=== PATIENT | male | born 1950 | race Caucasian/White ===

== ENCOUNTER 2017-08-04 12:20 | Inpatient (IN) ==
[2017-08-04] MEDS ORDERED: *HR* Promethazine 25 MG/ML VIAL ONE (12:26)
[2017-08-04] MEDS ORDERED: *HR* Midazolam HCl 5 MG/5 ML VIAL IVP ONE (12:26)
[2017-08-04] MEDS ORDERED: *HR* FentaNYL (PF) 100 MCG/2 ML VIAL ONE (12:26)
[2017-08-04] MEDS ORDERED: *HR* Promethazine 25 MG/ML VIAL IVP ONE (12:37)
[2017-08-04] MEDS ORDERED: Simethicone 40 MG/0.6 ML MLS IR ONE (12:37)
[2017-08-04] MEDS ORDERED: *HR* FentaNYL (PF) 100 MCG/2 ML VIAL IVP PRN (12:37)
--- NOTE | 2017-08-04 12:41 | History & Physical Report ---
Date of Encounter: 08/04/17 Time of Encounter: 12:40 24 Hour HP Update - Instructions Instructions: If the History and Physical is less than 30 days old and was completed prior to A.M. admission and or procedure and has NOT been updated on calendar day of procedure please complete this update prior to performing procedure. - Update Patient reports changes in Medical Condition: No Changes in examination, assessment, or condition: No Changes in Medication: No Surgery Remains Indicated: Yes Consent for Planned Operative Procedure(s) Verified: Yes - Pre-Operative Checklist Prophylactic Antibiotic Ordered: No Home Medications Include Beta Americo: Yes Is VTE Prophylaxis Indicated?: NO
--- NOTE | 2017-08-04 12:41 | Pre-Sedation Evaluation ---
Pre-sedation evaluation - Pre-sedation checklist Date of procedure: 08/04/17 Procedure: flex sigmoidoscopy Recent Vitals: Last Vital Signs Temp 98.5 F 08/04/17 12:28 Pulse 84 08/04/17 12:28 Resp 20 08/04/17 12:28 BP 110/76 08/04/17 12:28 Pulse Ox 95 08/04/17 12:28 H&P (including ROS) documented in medical record: Yes Previous reaction to sedatives/anesthetics: No Dietary Status: NPO after Midnight Dentition: No loose teeth or bridges ASA Classification *see protocol: CLASS III-Severe systemic disease Plan of Care: Pt appropriate candidate for procedure/moderate/conscious sedation , Risks/benefits of procedure/sedation discussed w/ patient/family
[2017-08-04] MEDS ORDERED: 0.9 % Sodium Chloride 1,000 ML IVC SCH (12:45)
[2017-08-04] MEDS: *HR* Midazolam HCl 5 MG/5 ML VIAL IVP PRN ×2 (12:45→12:47)
[2017-08-04] MEDS ORDERED: Naloxone 0.4 MG/ML INJ IVP PRN (13:40)
[2017-08-04] MEDS ORDERED: Polyethylene Glycol 3350 255 GM POWDER PO ONE (13:42)
[2017-08-04] MEDS ORDERED: *HR* LORazepam 2 MG/ML VIAL IVP PRN (14:09)
[2017-08-04 14:12] LABS: Hematocrit 37.1 % (37.5-50.1); Hemoglobin 12.8 g/dL (12.9-16.9); Mean Corpuscular HGB Conc 34.5 g/dL (31.6-35.5); Mean Corpuscular Hemoglobin 28.7 pg (28.0-33.3); Mean Corpuscular Volume 83.2 fL (83.0-100.0); Mean Platelet Volume 9.2 fL (9.4-12.4); Platelet Count 177 K/mcL (140-400); Red Blood Count 4.46 M/mcL (4.19-5.50); Red Cell Distribution Width 15.3 % (11.5-14.5)
[2017-08-04 14:29] LABS: BUN/Creatinine Ratio 12 (6-26); Blood Urea Nitrogen 14 mg/dL (8-26); Calcium 9.2 mg/dL (8.6-10.8); Carbon Dioxide 26 mEq/L (19-29); Chloride 105 mEq/L (98-109); Glucose 226 mg/dL (70-99); Magnesium 1.7 mg/dL (1.6-2.6); Osmolality,Calculated 294 (280-300); Phosphorous 3.1 mg/dL (2.3-4.7); Potassium 4.3 mEq/L (3.5-4.5); Sodium 138 mEq/L (136-145); eGFR For African Americans > 60 (> 60); eGFR For Non-African Americans > 60 (> 60)
[2017-08-04] MEDS: 0.9 % Sodium Chloride 1,000 ML IVC SCH (15:30)
[2017-08-04] MEDS: *HR* Metoprolol 5 MG/5 ML VIAL IVP SCH (16:24)
[2017-08-04] MEDS: Acetaminophen 325 MG TABLET PO PRN (17:53)
--- NOTE | 2017-08-04 19:27 | Anesthesia Evaluation PreOp ---
Date of Encounter: 08/04/17 Time of Encounter: 19:25 - Past History Planned Operation: Robotic Low ant. Resection Cardiac History: Denies any Significant Hx (Col), HTN, Hyperlipidemia Pulmonary History: CIARAN Dx (CPAP (7)) INTERNAL MEDICINE NURSE History: Denies Any Significant HX Other Medical History: Other (Rectal CA) Anesthesia History: No Prior Anesthetic Complications, Past Anesthesia ( Colonoscopy, Cataracts) Alcohol Use: none Drug use: none Medications and Allergies Ascorbic Acid [Vitamin C] 500 mg PO DAILY #30 tablet 04/26/17 [Rx] Ferrous Sulfate [Iron] 325 mg PO DAILY #30 tablet 04/26/17 [Rx] Lisinopril-HCTZ 20-12.5 [Prinzide 20-12.5] 1 each PO DAILY 04/26/17 [History] Omeprazole [PriLOSEC] 20 mg PO BIDAC #30 cap 04/26/17 [Rx] Ondansetron HCl [Zofran] 4 mg PO Q4H PRN #30 tablet 04/26/17 [Rx] Prochlorperazine Maleate [Compazine] 10 mg PO Q6H PRN #30 tablet 04/26/17 [Rx] OxyCODONE/APAP 5/325 [Percocet 5/325 MG] 1 - 2 each PO Q6HR PRN #40 tablet 07/14 [Rx] ALPRAZolam [Xanax 0.5 MG Tablet] 0.5 mg PO BID PRN #40 tablet 07/27/17 [Rx] 3 Allergy/AdvReac Type Severity Reaction Status Date / Time No Known Allergies Allergy Verified 07/14/17 16:04 - Meds/Allergy Pre-op Review Medications Reviewed: Yes Allergies Reviewed: Yes Beta Blockers on Current Med List: No Anesthesia Results - Labs 08/04/17 14:04 08/04/17 14:04 - Imaging EKG: image reviewed (SINUS RHYTHM MODERATE VOLTAGE CRITERIA FOR LVH, CONSIDER NORMAL VARIANT INFERIOR MYOCARDIAL INFARCTION, PROBABLY OLD) Anesthesia Exam O2 Sat Height 1.85 m Height 1.85 m Height 1.85 m Height 1.85 m Weight 89.811 kg Weight 89.811 kg Weight 89.811 kg Weight 89.811 kg O2 Sat by Pulse Oximetry 96 O2 Sat by Pulse Oximetry 95 O2 Sat by Pulse Oximetry 97 O2 Sat by Pulse Oximetry 97 O2 Sat by Pulse Oximetry 95 O2 Sat by Pulse Oximetry 95 Vital Signs Temp Pulse Resp BP Pulse Ox 98.5 F 84 20 110/76 95 08/04/17 12:14 08/04/17 12:14 08/04/17 12:14 08/04/17 12:14 08/04/17 12:14 Vital Signs/O2 Sat, Most Current Temp Pulse Resp BP Pulse Ox 97.8 F 76 14 114/78 96 08/04/17 14:23 08/04/17 14:23 08/04/17 14:23 08/04/17 14:23 08/04/17 14:23 Height: 6'1'' Weight: 197# - HEENT Pupil (Motor): Pupils equal, EOMI Mallampati: II Teeth: Normal Oral Opening: Greater than 3 - INTERNAL MEDICINE NURSE LOC: Oriented INTERNAL MEDICINE NURSE Motor: Normal RUE, Normal LUE, Normal RLE, Normal LLE, Normal Face INTERNAL MEDICINE NURSE Sensory: Normal: RUE, LUE, RLE, LLE, Face - Cardiac Rhythm: Regular Murmur: None JVD: No Carotid Bruit: No - Pulmonary Breath Sounds: bilateral Clear Respiratory Effort: Symmetrical Anesthesia Assess/Plan ASA Score: 2 Modified Genoveva Scale for Level of Consciousness: Cooperative, oriented, and tranquil Anesthetic Plan: General Autologous Blood: Yes Monitoring Plan: Standard Monitors Recovery Plan: PACU
[2017-08-05] MEDS: *HR* Metoprolol 5 MG/5 ML VIAL IVP SCH ×4 (00:11→18:06)
[2017-08-05] MEDS: Acetaminophen 325 MG TABLET PO PRN (04:08)
[2017-08-05] MEDS: 0.9 % Sodium Chloride 1,000 ML IVC SCH ×2 (04:11→21:20)
[2017-08-05 04:56] LABS: BUN/Creatinine Ratio 11 (6-26); Blood Urea Nitrogen 13 mg/dL (8-26); Calcium 9.3 mg/dL (8.6-10.8); Carbon Dioxide 22 mEq/L (19-29); Chloride 107 mEq/L (98-109); Glucose 197 mg/dL (70-99); Magnesium 2.1 mg/dL (1.6-2.6); Osmolality,Calculated 290 (280-300); Phosphorous 3.5 mg/dL (2.3-4.7); Potassium 3.6 mEq/L (3.5-4.5); Sodium 137 mEq/L (136-145); eGFR For African Americans > 60 (> 60); eGFR For Non-African Americans > 60 (> 60)
[2017-08-05 05:37] LABS: Basophils % 0.3 %; Eosinophils # 0.2 K/mcL (0.0-0.6); Eosinophils % 2.8 %; Hematocrit 39.2 % (37.5-50.1); Hemoglobin 13.3 g/dL (12.9-16.9); Immature Granulocytes % 0.7 % (0-4); Lymphocytes # 0.6 K/mcL (0.6-4.6); Lymphocytes % 8.8 %; Mean Corpuscular HGB Conc 33.9 g/dL (31.6-35.5); Mean Corpuscular Volume 82.5 fL (83.0-100.0); Mean Platelet Volume 10.1 fL (9.4-12.4); Monocytes # 0.6 K/mcL (0.0-1.3); Monocytes % 8.3 %; Neutrophils # 5.5 K/mcL (1.6-8.9); Platelet Count 200 K/mcL (140-400); Red Blood Count 4.75 M/mcL (4.19-5.50); Red Cell Distribution Width 15.4 % (11.5-14.5); Segmented Neutrophils % 79.1 %
[2017-08-05] MEDS ORDERED: *HR* Rocuronium Bromide 50 MG/5 ML VIAL ONE ×2 (06:39→09:58)
[2017-08-05] MEDS ORDERED: *HR* Propofol 200 MG/20 ML VIAL IVP ONE (06:39)
[2017-08-05] MEDS ORDERED: *HR* Succinylcholine 200 MG/10 ML VIAL IVP ONE (06:39)
[2017-08-05] MEDS ORDERED: Lidocaine -MPF 4% 5 ML AMPUL ONE (06:39)
[2017-08-05] MEDS ORDERED: Dexamethasone 4 MG/ML VIAL ONE (06:39)
[2017-08-05] MEDS ORDERED: Lidocaine -MPF 2% 2 ML VIAL ONE ×2 (06:39→06:57)
[2017-08-05] MEDS ORDERED: Ondansetron 4 MG/2 ML VIAL ONE (06:39)
[2017-08-05] MEDS ORDERED: *HR* Midazolam HCl 2 MG/2 ML VIAL ONE (06:39)
[2017-08-05] MEDS ORDERED: *HR* FentaNYL (PF) 100 MCG/2 ML VIAL ONE (06:39)
[2017-08-05] MEDS ORDERED: *HR* Phenylephrine 10 MG/ML VIAL ONE (06:46)
[2017-08-05] MEDS: Pantoprazole 40 MG VIAL IVP SCH (08:45)
[2017-08-05] MEDS ORDERED: *HR* Enoxaparin 40 MG/0.4 ML SYRINGE SQ ONE (10:02)
[2017-08-05] MEDS ORDERED: cefOXitin 2,000 MG in D5% in Water (Mini-Bag+) 100 ML IVPB ONE (10:15)
[2017-08-05] MEDS ORDERED: *HR* HYDROmorphone 2 MG/ML SYRINGE ONE ×2 (10:33→12:43)
[2017-08-05] MEDS ORDERED: Neostigmine Methylsulfate 3 MG/3 ML SYRINGE ONE (12:15)
[2017-08-05] MEDS ORDERED: *HR* Promethazine 25 MG/ML VIAL IVP PRN (12:18)
[2017-08-05] MEDS ORDERED: Albuterol 2.5 MG/3 ML NEBULIZER IH PRN (12:18)
[2017-08-05] MEDS ORDERED: Ondansetron 4 MG/2 ML VIAL IVP PRN (12:18)
[2017-08-05] MEDS: *HR* HYDROmorphone (PF) 1 MG/ML SYRINGE IVP PRN ×3 (13:20→21:18)
[2017-08-05] MEDS ORDERED: *HR* HYDROmorphone (PF) 1 MG/ML SYRINGE ONE (13:24)
--- NOTE | 2017-08-05 13:43 | Anesthesia Evaluation Post Op ---
Date of Encounter: 08/05/17 Time of Encounter: 13:40 - Vital Signs Vital Signs: Last Vital Signs Temp 97.3 F L 08/05/17 13:29 Pulse 88 08/05/17 13:29 Resp 18 08/05/17 13:29 BP 144/83 08/05/17 13:29 Pulse Ox 94 08/05/17 13:29 - Lungs Lungs: Clear Ascult./Percussion - Airway Airway: Non-obstructed - Cardiovascular Regular Rate - Mental Status Mental Status: Asleep with brisk response to light stimulation - Pain Pain Scale: 7 Pain Scale used: Numeric (1 - 10) - Nausea Vomiting Nausea Vomiting: Not Present - Hydration Hydration: NPO, Has not voided - Discharge PostOp Status: Transfer Patient to floor Attestation: Patient meets floor transfer criteria. Easily awakens and communicative.
--- NOTE | 2017-08-05 15:12 | Operative Note ---
Date of procedure: 08/05/17 Pre-op diagnosis: Rectal Cancer Post-op diagnosis: same Procedure in Detail: After informed consent, patient taken operating room placed supine position. After adequate sedation anesthesia patient was placed in a lithotomy position. After proper timeout a 12 mm cannula site was placed right superior to the umbilicus. Pneumoperitoneum was greater. A 13 mm cannula was placed in right lower quadrant. 5 mm camera was placed in the right upper quadrant. An 8 mm cannula was placed in subxiphoid region followed by another 8 mm in the left lower quadrant. Patient was placed in a headdown position. The robot was docked over the patient's left hip. Small bowel swept out of the pelvis. Rectosigmoid colon was then grasped and retracted cephalad. The peritoneum was then scored level of the sacral promontory. The left ureter was identified and kept on harm's way. The inferior mesenteric artery was then taken with a vessel sealer. The lateral rectosigmoid stalks were taken down the vessel sealer. The dissection was carried out down to the pelvic floor. The pelvic floor musculature was easily visualized. Rectosigmoid colon was dissected free from the retro-pubic tubercle region and the seminal vesicles were kept out of harm's way. Once it was freed a 45 mm robotic Endo staplers fired across the rectum. Once it was retracted and area was demarcated on the rectosigmoid sigmoid colon for transection. Indocyanine green was infused and we had excellent perfusion. A counterincision was made in the suprapubic region. Dissection carried down the anterior rectus sheath. The rectus muscles were then divided in the midline with Shirlene clamp. Once they were split the rectum and mesorectum were delivered. Yuly bowel clamps are used to place across the colon proximal and distal and transected. Allis clamps are placed on the bowel and then a pursestring suture device placed on the colon. 3-0 Prolene suture was passed. A pursestring sutures and created and a 33 mm EEA anvil was placed. Suture was tied and secured. Colon was then placed back in the pelvis. The stapler was passed through the anal canal and to the rectal stump and then the spear was placed through the staple line. The anvil was then connected secured and fired. There were 2 excellent donuts. A leak test revealed no leak. The distal termial ileum was brought to the right lower quadrant and a loop ileostomy was created. It was sewn to the skin with 3-0 vicryl. At that point the procedure was terminated. All incisions are closed with 0 Vicryl suture and 4-0 Vicryl suture. Marcaine was inserted in the Pfannenstiel incision. He tolerated the procedure well.
[2017-08-06] MEDS: *HR* Metoprolol 5 MG/5 ML VIAL IVP SCH ×4 (00:02→17:07)
[2017-08-06] MEDS: *HR* OxyCODONE/APAP 5/325 TABLET PO PRN ×4 (00:02→20:10)
[2017-08-06] MEDS: *HR* HYDROmorphone (PF) 1 MG/ML SYRINGE IVP PRN ×6 (03:29→19:01)
[2017-08-06 04:12] LABS: Basophils % 0.1 %; Hematocrit 32.5 % (37.5-50.1); Immature Granulocytes % 0.7 % (0-4); Lymphocytes # 0.6 K/mcL (0.6-4.6); Mean Corpuscular HGB Conc 32.9 g/dL (31.6-35.5); Mean Corpuscular Hemoglobin 27.7 pg (28.0-33.3); Mean Corpuscular Volume 84.2 fL (83.0-100.0); Mean Platelet Volume 10.3 fL (9.4-12.4); Monocytes % 7.7 %; Neutrophils # 10.6 K/mcL (1.6-8.9); Platelet Count 261 K/mcL (140-400); Red Blood Count 3.86 M/mcL (4.19-5.50); Red Cell Distribution Width 15.6 % (11.5-14.5); Segmented Neutrophils % 86.5 %
[2017-08-06 04:16] LABS: Hemoglobin 10.7 g/dL (12.9-16.9)
[2017-08-06 04:31] LABS: Calcium 8.4 mg/dL (8.6-10.8); Magnesium 1.9 mg/dL (1.6-2.6); Potassium 4.6 mEq/L (3.5-4.5)
[2017-08-06] MEDS: Pantoprazole 40 MG VIAL IVP SCH (08:28)
[2017-08-06] MEDS: 0.9 % Sodium Chloride 1,000 ML IVC SCH (11:26)
[2017-08-06] MEDS: *HR* Heparin 5,000 UNIT/ML VIAL SQ SCH ×2 (11:27→17:07)
--- NOTE | 2017-08-06 12:11 | General Surgery Progress Note ---
<Efraín Hendricks - Last Filed: 08/06/17 17:12> Date of Encounter: 08/06/17 Time of Encounter: 10:15 - Assessment and Plan (1) Status post ileostomy Current Visit: Yes Status: Acute Patient is recovering well from his operation. Has some mild pain near his incision sites. Loop ileostomy and bag present in the RLQ. There is a small amount of blood is present in the bag; this is normal per Dr. Gao. -Pain control -Clear liquid diet. -Protonix 40 mg. -Zofran 4mg Q4hr PRN. -AM labs. -Pathology specimen is currently pending. (2) Anxiety Current Visit: No Status: Acute Patient is currently on Ativan 0.5 mg. (3) NIRANJAN (iron deficiency anemia) Current Visit: No Status: Acute Hemoglobin was 10.7 this morning. Qualifiers: Qualified Code(s): D50.9 - Iron deficiency anemia, unspecified (4) Rectal cancer Current Visit: No Status: Acute Subjective Patient reports: no new complaints, feels better, still having pain, pain is less Narrative: Patient was seen and examined at bedside this morning. Patient states that he has mild pain in his abdomen around the areas of his incision sites. He states that his pain is currently well controlled. He is currently on a clear liquid diet and is tolerating it well. He currently denies fever, chills, nausea, vomiting, or chest pain. Patient appears to be recovering well after his operation. He has no complaints at this time. Objective Vital Signs - Last 8 Hours Temp Pulse Resp BP Pulse Ox 08/06/17 11:36 97.4 F L 80 14 126/73 96 08/06/17 07:10 97.4 F L 75 16 117/75 96 08/06/17 04:19 97.9 F 93 14 114/75 96 Intake and Output 08/05/17 08/06/17 08/06/17 23:59 07:59 15:59 Intake Total 1000 / 1000 120 / 120 1000 / 1000 Output Total 75 / 75 550 / 550 200 / 200 Balance 925 / 925 -430 / -430 800 / 800 Intake: IV Fluids 1000 / 1000 1000 / 1000 0.9 % Sodium Chloride 1,000 ML 1000 / 1000 1000 / 1000 @ 75 mls/hr IVC .[id number] [facility] Rx #:[id number] Oral 0 / 0 120 / 120 Output: Urine 75 / 75 550 / 550 200 / 200 Other: Meal NPO NPO Weight 89.403 kg Blood Glucose* 346 307 Patient Weight 08/06/17 23:59 Weight 89.403 kg - General physical appearance well developed, well nourished, no distress - Neck Neck exam: trachea midline, no lymphadectomy - Respiratory normal expansion, normal respiratory effort, clear to auscultation - Cardiovascular Cardiovascular exam: Present: RRR, no murmurs/rubs/gallops. Absent: bradycardia , gallop - Abdomen Abdomen: Present: bowel sounds present, soft, tender Additional Comments: Ileostomy bag observed in the right lower quadrant. There is blood in his bag; per Dr. Gao, this is normal appearance. Several bandages are observed on the abdomen. No drainage, redness, or blood observed. - Incision Incision: Present: clean and dry, intact - Psychiatric oriented to time, oriented to person, oriented to place, speech is normal - Labs 08/06/17 03:00 08/06/17 03:00 Diabetes panel 08/06/17 Range/Units 03:00 Sodium 139 (136-145) mEq/L Potassium 4.6 H D (3.5-4.5) mEq/L Chloride 110 H (98-109) mEq/L Carbon Dioxide 18 L (19-29) mEq/L BUN 29 H D (8-26) mg/dL Creatinine 1.73 H D (0.72-1.25) mg/dL Glucose 361 H (70-99) mg/dL Calcium 8.4 L (8.6-10.8) mg/dL Calcium panel 08/06/17 Range/Units 03:00 Calcium 8.4 L (8.6-10.8) mg/dL Phosphorus 6.0 H D (2.3-4.7) mg/dL Pituitary panel 08/06/17 Range/Units 03:00 Sodium 139 (136-145) mEq/L Potassium 4.6 H D (3.5-4.5) mEq/L Chloride 110 H (98-109) mEq/L Carbon Dioxide 18 L (19-29) mEq/L BUN 29 H D (8-26) mg/dL Creatinine 1.73 H D (0.72-1.25) mg/dL Glucose 361 H (70-99) mg/dL Calcium 8.4 L (8.6-10.8) mg/dL Adrenal panel 08/06/17 Range/Units 03:00 Sodium 139 (136-145) mEq/L Potassium 4.6 H D (3.5-4.5) mEq/L Chloride 110 H (98-109) mEq/L Carbon Dioxide 18 L (19-29) mEq/L BUN 29 H D (8-26) mg/dL Creatinine 1.73 H D (0.72-1.25) mg/dL Glucose 361 H (70-99) mg/dL Calcium 8.4 L (8.6-10.8) mg/dL - VTE Documentation of Mechanical Device: Intermittent pneumatic compression device Consult Discharge Plan - Plan Referrals: Lavonne Arellano MD [Partnered Physician] - 08/18/17 1:55 pm Jessica Wang CNP [Primary Care Provider] - <Nick Gao - Last Filed: 08/07/17 10:14> Date of Encounter: 08/06/17 Objective Vital Signs - Last 8 Hours Temp Pulse Resp BP Pulse Ox 08/07/17 09:59 91 18 158/82 93 08/07/17 06:51 97.4 F L 83 18 156/73 92 08/07/17 04:02 97.4 F L 95 14 165/79 91 Intake and Output 08/06/17 08/07/17 08/07/17 23:59 07:59 15:59 Intake Total 120 / 120 1000 / 1000 Output Total 150 / 150 350 / 350 Balance -30 / -30 650 / 650 Intake: IV Fluids 1000 / 1000 0.9 % Sodium Chloride 1,000 ML 1000 / 1000 @ 75 mls/hr IVC .[id number] [facility] Rx #:[id number] Oral 120 / 120 0 / 0 Output: Urine 150 / 150 350 / 350 Other: Meal npo npo Weight 89.04 kg Blood Glucose* 320 353 Patient Weight 08/07/17 23:59 Weight 89.04 kg - Labs 08/07/17 08:02 08/07/17 08:02 Diabetes panel 08/07/17 Range/Units 08:02 Sodium 137 (136-145) mEq/L Potassium 4.9 H (3.5-4.5) mEq/L Chloride 107 (98-109) mEq/L Carbon Dioxide 19 (19-29) mEq/L BUN 35 H (8-26) mg/dL Creatinine 1.34 H (0.72-1.25) mg/dL Glucose 346 H (70-99) mg/dL Calcium 8.7 (8.6-10.8) mg/dL Calcium panel 08/07/17 Range/Units 08:02 Calcium 8.7 (8.6-10.8) mg/dL Pituitary panel 08/07/17 Range/Units 08:02 Sodium 137 (136-145) mEq/L Potassium 4.9 H (3.5-4.5) mEq/L Chloride 107 (98-109) mEq/L Carbon Dioxide 19 (19-29) mEq/L BUN 35 H (8-26) mg/dL Creatinine 1.34 H (0.72-1.25) mg/dL Glucose 346 H (70-99) mg/dL Calcium 8.7 (8.6-10.8) mg/dL Adrenal panel 08/07/17 Range/Units 08:02 Sodium 137 (136-145) mEq/L Potassium 4.9 H (3.5-4.5) mEq/L Chloride 107 (98-109) mEq/L Carbon Dioxide 19 (19-29) mEq/L BUN 35 H (8-26) mg/dL Creatinine 1.34 H (0.72-1.25) mg/dL Glucose 346 H (70-99) mg/dL Calcium 8.7 (8.6-10.8) mg/dL - Attending Attestation I examined this patient and my medical decision-making was reviewed with the Resident Physician. I agree with the documented findings, disposition and treatment plan as described except to the extent set forth below. The patient is seen and evaluated on morning rounds. The ileostomy has serosanguineous fluid. This amount of bleeding is not of any concern clinically. His abdomen is slightly distended. There is no flatus in the ileostomy bag. He is currently on clear liquids. We will continue supportive care. Nick Gao MD FACS
[2017-08-07] MEDS: 0.9 % Sodium Chloride 1,000 ML IVC SCH ×2 (00:33→12:59)
[2017-08-07] MEDS: *HR* Metoprolol 5 MG/5 ML VIAL IVP SCH ×6 (00:34→23:00)
[2017-08-07] MEDS: *HR* OxyCODONE/APAP 5/325 TABLET PO PRN ×3 (02:08→23:00)
[2017-08-07] MEDS: Ondansetron 4 MG/2 ML VIAL IVP PRN (03:55)
[2017-08-07] MEDS: *HR* Heparin 5,000 UNIT/ML VIAL SQ SCH ×2 (06:44→08:31)
[2017-08-07 08:11] LABS: Hematocrit 28.3 % (37.5-50.1); Hemoglobin 9.7 g/dL (12.9-16.9); Immature Platelets 2.2 % (1.1-6.1); Mean Corpuscular HGB Conc 34.3 g/dL (31.6-35.5); Mean Corpuscular Hemoglobin 28.8 pg (28.0-33.3); Mean Platelet Volume 9.2 fL (9.4-12.4); Red Blood Count 3.37 M/mcL (4.19-5.50); Red Cell Distribution Width 15.5 % (11.5-14.5)
[2017-08-07 08:42] LABS: BUN/Creatinine Ratio 26 (6-26); Blood Urea Nitrogen 35 mg/dL (8-26); Calcium 8.7 mg/dL (8.6-10.8); Carbon Dioxide 19 mEq/L (19-29); Chloride 107 mEq/L (98-109); Glucose 346 mg/dL (70-99); Osmolality,Calculated 306 (280-300); Potassium 4.9 mEq/L (3.5-4.5); Sodium 137 mEq/L (136-145); eGFR For African Americans > 60 (> 60); eGFR For Non-African Americans 53 (> 60)
[2017-08-07] MEDS ORDERED: *HR* Promethazine 25 MG/ML VIAL IVP ONE (08:49)
[2017-08-07] MEDS ORDERED: *HR* Promethazine 25 MG/ML VIAL ONE (08:51)
[2017-08-07] MEDS: Pantoprazole 40 MG VIAL IVP SCH (08:55)
[2017-08-07] MEDS: *HR* HYDROmorphone (PF) 1 MG/ML SYRINGE IVP PRN ×2 (09:06→12:57)
--- NOTE | 2017-08-07 10:58 | General Surgery Progress Note ---
<Efraín Hendricks - Last Filed: 08/07/17 11:04> Date of Encounter: 08/07/17 Time of Encounter: 10:15 - Assessment and Plan (1) Status post ileostomy Current Visit: Yes Status: Acute Patient is recovering well from his operation. Has some mild pain near his incision sites. Loop ileostomy and bag present in the RLQ. There is a small amount of blood is present in the bag; this is normal per Dr. Gao. -Pain control -Clear liquid diet. -Protonix 40 mg. -Zofran 4mg Q4hr PRN. -AM labs. -Pathology specimen is currently pending. (2) Nausea Current Visit: Yes Status: Acute Patient reported having nausea without vomiting this morning. Plan: -Patient is now NPO -Reglan 20 mg IV q8hr for 4 doses, then discontinue. (3) Anxiety Current Visit: No Status: Acute Patient was previously on Ativan; this has been discontinued. Patient is now on Xanax. (4) NIRANJAN (iron deficiency anemia) Current Visit: No Status: Acute Hemoglobin was 9.7 this morning. (5) Rectal cancer Current Visit: No Status: Acute Subjective Patient reports: still having pain, pain is less Narrative: Patient was seen and examined at bedside this morning. He reports feeling nausea this morning, but denies any episodes of vomiting. Denies having any new abdominal pain. He is still somewhat sore, particularly at his incision sites. Currently denies feeling any anxiety. Denies fever or chills. Objective Vital Signs - Last 8 Hours Temp Pulse Resp BP Pulse Ox 08/07/17 09:59 91 18 158/82 93 08/07/17 06:51 97.4 F L 83 18 156/73 92 08/07/17 04:02 97.4 F L 95 14 165/79 91 Intake and Output 08/06/17 08/07/17 08/07/17 23:59 07:59 15:59 Intake Total 120 / 120 1000 / 1000 Output Total 150 / 150 350 / 350 Balance -30 / -30 650 / 650 Intake: IV Fluids 1000 / 1000 0.9 % Sodium Chloride 1,000 ML 1000 / 1000 @ 75 mls/hr IVC .[id number] [facility] Rx #:[id number] Oral 120 / 120 0 / 0 Output: Urine 150 / 150 350 / 350 Other: Meal npo npo Weight 89.04 kg Blood Glucose* 320 353 Patient Weight 08/07/17 23:59 Weight 89.04 kg - Labs 08/07/17 08:02 08/07/17 08:02 Diabetes panel 08/07/17 Range/Units 08:02 Sodium 137 (136-145) mEq/L Potassium 4.9 H (3.5-4.5) mEq/L Chloride 107 (98-109) mEq/L Carbon Dioxide 19 (19-29) mEq/L BUN 35 H (8-26) mg/dL Creatinine 1.34 H (0.72-1.25) mg/dL Glucose 346 H (70-99) mg/dL Calcium 8.7 (8.6-10.8) mg/dL Calcium panel 08/07/17 Range/Units 08:02 Calcium 8.7 (8.6-10.8) mg/dL Pituitary panel 08/07/17 Range/Units 08:02 Sodium 137 (136-145) mEq/L Potassium 4.9 H (3.5-4.5) mEq/L Chloride 107 (98-109) mEq/L Carbon Dioxide 19 (19-29) mEq/L BUN 35 H (8-26) mg/dL Creatinine 1.34 H (0.72-1.25) mg/dL Glucose 346 H (70-99) mg/dL Calcium 8.7 (8.6-10.8) mg/dL Adrenal panel 08/07/17 Range/Units 08:02 Sodium 137 (136-145) mEq/L Potassium 4.9 H (3.5-4.5) mEq/L Chloride 107 (98-109) mEq/L Carbon Dioxide 19 (19-29) mEq/L BUN 35 H (8-26) mg/dL Creatinine 1.34 H (0.72-1.25) mg/dL Glucose 346 H (70-99) mg/dL Calcium 8.7 (8.6-10.8) mg/dL - VTE Documentation of Mechanical Device: Intermittent pneumatic compression device Consult Discharge Plan - Plan Referrals: Lavonne Arellano MD [Partnered Physician] - 08/18/17 1:55 pm Jessica Wang CNP [Primary Care Provider] - <Nick Gao - Last Filed: 08/07/17 14:30> Date of Encounter: 08/07/17 Time of Encounter: 10:15 Objective Vital Signs - Last 8 Hours Temp Pulse Resp BP Pulse Ox 08/07/17 11:12 97.6 F 94 18 148/72 90 08/07/17 09:59 91 18 158/82 93 08/07/17 06:51 97.4 F L 83 18 156/73 92 Intake and Output 08/06/17 08/07/17 08/07/17 23:59 07:59 15:59 Intake Total 120 / 120 1000 / 1000 1000 / 1000 Output Total 150 / 150 350 / 350 800 / 800 Balance -30 / -30 650 / 650 200 / 200 Intake: IV Fluids 1000 / 1000 1000 / 1000 0.9 % Sodium Chloride 1,000 ML 1000 / 1000 1000 / 1000 @ 75 mls/hr IVC .[id number] [facility] Rx #:[id number] Oral 120 / 120 0 / 0 0 / 0 Output: Urine 150 / 150 350 / 350 800 / 800 Other: Meal npo npo Weight 89.04 kg Blood Glucose* 320 353 312 Patient Weight 08/07/17 23:59 Weight 89.04 kg - Labs 08/07/17 08:02 08/07/17 08:02 Diabetes panel 08/07/17 08/07/17 Range/Units 08:02 08:02 Sodium 137 (136-145) mEq/L Potassium 4.9 H (3.5-4.5) mEq/L Chloride 107 (98-109) mEq/L Carbon Dioxide 19 (19-29) mEq/L BUN 35 H (8-26) mg/dL Creatinine 1.34 H (0.72-1.25) mg/dL Glucose 346 H (70-99) mg/dL Hemoglobin A1c 8.8 H ( - 5.6) % Calcium 8.7 (8.6-10.8) mg/dL Calcium panel 08/07/17 Range/Units 08:02 Calcium 8.7 (8.6-10.8) mg/dL Pituitary panel 08/07/17 Range/Units 08:02 Sodium 137 (136-145) mEq/L Potassium 4.9 H (3.5-4.5) mEq/L Chloride 107 (98-109) mEq/L Carbon Dioxide 19 (19-29) mEq/L BUN 35 H (8-26) mg/dL Creatinine 1.34 H (0.72-1.25) mg/dL Glucose 346 H (70-99) mg/dL Calcium 8.7 (8.6-10.8) mg/dL Adrenal panel 08/07/17 Range/Units 08:02 Sodium 137 (136-145) mEq/L Potassium 4.9 H (3.5-4.5) mEq/L Chloride 107 (98-109) mEq/L Carbon Dioxide 19 (19-29) mEq/L BUN 35 H (8-26) mg/dL Creatinine 1.34 H (0.72-1.25) mg/dL Glucose 346 H (70-99) mg/dL Calcium 8.7 (8.6-10.8) mg/dL - Attending Attestation I examined this patient and my medical decision-making was reviewed with the Resident Physician. I agree with the documented findings, disposition and treatment plan as described except to the extent set forth below. The patient is seen and evaluated on morning rounds. He has no itching and abdominal distention. He has had one episode of vomiting. He continues to have a small amount of serosanguineous drainage in his ileostomy bag. There is no flatus she had an ileostomy bag we will plan on making him nothing by mouth and giving him Reglan in an attempt to avoid nasogastric tube drainage. We will continue IV hydration. Nick Gao MD FACS
[2017-08-07] MEDS ORDERED: *HR* Dextrose 50 % in Water (Syg) 50 ML SYRINGE IVP PRN (12:22)
[2017-08-07] MEDS ORDERED: D5% in Water 1,000 ML IVC PRN (12:22)
[2017-08-07] MEDS ORDERED: Dextrose Gel 15 GM PO PRN ×2 (12:22)
[2017-08-07 12:54] LABS: Hemoglobin A1C 8.8 %
[2017-08-07] MEDS: Metoclopramide 20 MG in 0.9 % Sodium Chloride 50 ML IVPB SCH ×2 (14:34→18:22)
[2017-08-07 17:51] LABS: Hemoglobin 9.2 g/dL (12.9-16.9); Mean Corpuscular HGB Conc 34.1 g/dL (31.6-35.5); Mean Corpuscular Hemoglobin 28.6 pg (28.0-33.3); Mean Corpuscular Volume 83.9 fL (83.0-100.0); Mean Platelet Volume 9.7 fL (9.4-12.4); Platelet Count 239 K/mcL (140-400); Red Blood Count 3.22 M/mcL (4.19-5.50); Red Cell Distribution Width 15.6 % (11.5-14.5)
[2017-08-07 18:01] LABS: BUN/Creatinine Ratio 26 (6-26); Blood Urea Nitrogen 34 mg/dL (8-26); Calcium 8.4 mg/dL (8.6-10.8); Carbon Dioxide 21 mEq/L (19-29); Chloride 108 mEq/L (98-109); Glucose 306 mg/dL (70-99); Osmolality,Calculated 307 (280-300); Sodium 139 mEq/L (136-145); eGFR For African Americans > 60 (> 60); eGFR For Non-African Americans 54 (> 60)
[2017-08-07] MEDS: Insulin LISPRO 300 UNITS/3 ML VIAL SQ SCH ×2 (18:34→23:00)
[2017-08-08] MEDS: Ondansetron 4 MG/2 ML VIAL IVP PRN ×2 (02:36→21:26)
[2017-08-08] MEDS: *HR* HYDROmorphone (PF) 1 MG/ML SYRINGE IVP PRN ×4 (02:37→21:27)
[2017-08-08] MEDS: ALPRAZolam 0.5 MG TABLET PO PRN ×3 (02:46→21:53)
[2017-08-08] MEDS: 0.9 % Sodium Chloride 1,000 ML IVC SCH ×2 (02:46→17:37)
[2017-08-08] MEDS: Metoclopramide 20 MG in 0.9 % Sodium Chloride 50 ML IVPB SCH ×2 (02:50→09:52)
[2017-08-08] MEDS: *HR* Metoprolol 5 MG/5 ML VIAL IVP SCH ×3 (07:50→17:42)
[2017-08-08] MEDS: *HR* Heparin 5,000 UNIT/ML VIAL SQ SCH ×2 (07:50→17:48)
[2017-08-08] MEDS: Pantoprazole 40 MG VIAL IVP SCH (09:50)
[2017-08-08] MEDS: *HR* OxyCODONE/APAP 5/325 TABLET PO PRN (11:43)
[2017-08-08] MEDS: Insulin LISPRO 300 UNITS/3 ML VIAL SQ SCH ×3 (11:48→21:26)
--- NOTE | 2017-08-08 11:48 | General Surgery Progress Note ---
Date of Encounter: 08/08/17 Time of Encounter: 11:30 - Assessment and Plan (1) Rectal cancer Current Visit: No Status: Acute POD #3 from a LAR with diverting ileostomy with Dr. Negrete Advance to clear liquid diet with diabetic modifications Protein supplements TID with meals IV fluids- 75ml/hour Supportive care and pain control Increase activity as tolerated- ambulate hallways TID IS every 1 hour while awake Labs now and repeat in the am Wound care consult for ileostomy teaching (2) Hyperglycemia Current Visit: Yes Status: Acute Clear liquids with diabetic modifications Change SSI to ACHS and increase to medium scale coverage Will contnue to monitor and adjust as necessary (3) Acute kidney injury Current Visit: Yes Status: Acute Cr- 1.73>1.31 Continue IV fluids Avoid nephrotoxic medications Repeat labs now and in the am (4) DVT prophylaxis Current Visit: Yes Status: Acute Heparin 5,000 units SQ twice daily for DVT prophylaxis Ambulate hallway TID with assistance Subjective Patient reports: no new complaints, feels better, still having pain, pain is less, voiding w/o difficulty, flatus, bowel movement (via ileostomy), afebrile Objective Vital Signs - Last 8 Hours Temp Pulse Resp BP Pulse Ox 08/08/17 11:39 132/95 08/08/17 10:12 97.9 F 89 16 138/70 92 08/08/17 07:13 97.3 F L 87 16 160/74 93 08/08/17 05:18 97.7 F 96 14 123/70 93 Intake and Output 08/07/17 08/08/17 08/08/17 23:59 07:59 15:59 Intake Total 0 / 0 1000 / 1000 566 / 566 Output Total 1000 / 1000 0 / 0 700 / 700 Balance -1000 / -1000 1000 / 1000 -134 / -134 Intake: IV Fluids 1000 / 1000 566 / 566 0.9 % Sodium Chloride 1,000 ML 1000 / 1000 512 / 512 @ 75 mls/hr IVC .[id number] [facility] Rx #:[id number] Reglan 20 MG In 0.9 % Sodium 54 / 54 Chloride 50 ML @ 108 mls/hr IVPB Q8H [facility] Rx#:[id number] Oral 0 / 0 0 / 0 0 / 0 Output: Urine 700 / 700 0 / 0 700 / 700 Stool 300 / 300 Other: Meal NPo Percent of Meal Consumed 0% Stool Consistency liquid Stool Color Dark Red Blood Weight 88.859 kg Blood Glucose* 286 237 Patient Weight 08/08/17 23:59 Weight 88.859 kg - General physical appearance well developed, well nourished, no distress - Eyes PERRL, normal ocular movement - ENT dry mucosa, atraumatic, normocephalic - Neck Neck exam: trachea midline - Respiratory normal respiratory effort, clear to auscultation - Cardiovascular Cardiovascular exam: Present: RRR - Abdomen Abdomen: Present: bowel sounds present, soft, tender (expected post-operative tenderness) - Incision Incision: Present: clean and dry, intact - Neurologic CN 2-12 grossly intact - Psychiatric oriented to time, oriented to person, oriented to place, speech is normal, memory intact - Labs 08/07/17 16:57 08/07/17 16:57 Diabetes panel 08/07/17 08/07/17 Range/Units 08:02 16:57 Sodium 139 (136-145) mEq/L Potassium 5.0 H (3.5-4.5) mEq/L Chloride 108 (98-109) mEq/L Carbon Dioxide 21 (19-29) mEq/L BUN 34 H (8-26) mg/dL Creatinine 1.31 H (0.72-1.25) mg/dL Glucose 306 H (70-99) mg/dL Hemoglobin A1c 8.8 H ( - 5.6) % Calcium 8.4 L (8.6-10.8) mg/dL Calcium panel 08/07/17 Range/Units 16:57 Calcium 8.4 L (8.6-10.8) mg/dL Pituitary panel 08/07/17 Range/Units 16:57 Sodium 139 (136-145) mEq/L Potassium 5.0 H (3.5-4.5) mEq/L Chloride 108 (98-109) mEq/L Carbon Dioxide 21 (19-29) mEq/L BUN 34 H (8-26) mg/dL Creatinine 1.31 H (0.72-1.25) mg/dL Glucose 306 H (70-99) mg/dL Calcium 8.4 L (8.6-10.8) mg/dL Adrenal panel 08/07/17 Range/Units 16:57 Sodium 139 (136-145) mEq/L Potassium 5.0 H (3.5-4.5) mEq/L Chloride 108 (98-109) mEq/L Carbon Dioxide 21 (19-29) mEq/L BUN 34 H (8-26) mg/dL Creatinine 1.31 H (0.72-1.25) mg/dL Glucose 306 H (70-99) mg/dL Calcium 8.4 L (8.6-10.8) mg/dL - VTE Documentation of Mechanical Device: Intermittent pneumatic compression device Consult Discharge Plan - Plan Referrals: Lavonne Arellano MD [Partnered Physician] - 08/18/17 1:55 pm Jessica Wang CNP [Primary Care Provider] - - Attending Attestation For this encounter, I have reviewed the CLINICAL THERAPIST or PA documentation, treatment plan, and medical decision making; and I have had face to face time with this patient.
[2017-08-08 12:19] LABS: Basophils % 0.1 %; Eosinophils % 0.3 %; Hematocrit 25.3 % (37.5-50.1); Hemoglobin 8.5 g/dL (12.9-16.9); Immature Granulocytes % 0.9 % (0-4); Lymphocytes # 0.6 K/mcL (0.6-4.6); Lymphocytes % 5.8 %; Mean Corpuscular HGB Conc 33.6 g/dL (31.6-35.5); Mean Corpuscular Hemoglobin 28.6 pg (28.0-33.3); Mean Corpuscular Volume 85.2 fL (83.0-100.0); Mean Platelet Volume 8.9 fL (9.4-12.4); Monocytes # 0.9 K/mcL (0.0-1.3); Monocytes % 8.6 %; Neutrophils # 8.4 K/mcL (1.6-8.9); Platelet Count 225 K/mcL (140-400); Red Blood Count 2.97 M/mcL (4.19-5.50); Red Cell Distribution Width 15.7 % (11.5-14.5); Segmented Neutrophils % 84.3 %
[2017-08-08 12:35] LABS: BUN/Creatinine Ratio 29 (6-26); Blood Urea Nitrogen 30 mg/dL (8-26); Calcium 8.1 mg/dL (8.6-10.8); Carbon Dioxide 23 mEq/L (19-29); Chloride 110 mEq/L (98-109); Glucose 226 mg/dL (70-99); Osmolality,Calculated 303 (280-300); Potassium 4.4 mEq/L (3.5-4.5); Sodium 140 mEq/L (136-145); eGFR For African Americans > 60 (> 60); eGFR For Non-African Americans > 60 (> 60)
[2017-08-09] MEDS: *HR* Metoprolol 5 MG/5 ML VIAL IVP SCH ×2 (00:35→06:34)
[2017-08-09] MEDS: *HR* HYDROmorphone (PF) 1 MG/ML SYRINGE IVP PRN ×3 (04:42→16:12)
[2017-08-09] MEDS: ALPRAZolam 0.5 MG TABLET PO PRN ×3 (04:42→20:28)
[2017-08-09 06:29] LABS: Basophils % 0.2 %; Eosinophils # 0.2 K/mcL (0.0-0.6); Eosinophils % 2.5 %; Hematocrit 25.5 % (37.5-50.1); Hemoglobin 8.3 g/dL (12.9-16.9); Immature Granulocytes % 1.5 % (0-4); Lymphocytes # 0.6 K/mcL (0.6-4.6); Lymphocytes % 7.4 %; Mean Corpuscular HGB Conc 32.5 g/dL (31.6-35.5); Mean Corpuscular Hemoglobin 27.9 pg (28.0-33.3); Mean Corpuscular Volume 85.9 fL (83.0-100.0); Mean Platelet Volume 9.6 fL (9.4-12.4); Monocytes # 0.8 K/mcL (0.0-1.3); Monocytes % 9.1 %; Neutrophils # 6.8 K/mcL (1.6-8.9); Nucleated Red Blood Cells 0.6 /100 WBC (0); Platelet Count 235 K/mcL (140-400); Red Blood Count 2.97 M/mcL (4.19-5.50); Red Cell Distribution Width 15.8 % (11.5-14.5); Segmented Neutrophils % 79.3 %
[2017-08-09] MEDS: *HR* Heparin 5,000 UNIT/ML VIAL SQ SCH ×2 (06:34→18:43)
[2017-08-09 06:41] LABS: BUN/Creatinine Ratio 29 (6-26); Blood Urea Nitrogen 25 mg/dL (8-26); Calcium 8.1 mg/dL (8.6-10.8); Carbon Dioxide 22 mEq/L (19-29); Chloride 110 mEq/L (98-109); Glucose 164 mg/dL (70-99); Osmolality,Calculated 298 (280-300); Potassium 3.9 mEq/L (3.5-4.5); Sodium 140 mEq/L (136-145); eGFR For African Americans > 60 (> 60); eGFR For Non-African Americans > 60 (> 60)
[2017-08-09] MEDS: Pantoprazole 40 MG VIAL IVP SCH (08:13)
[2017-08-09] MEDS: Insulin LISPRO 300 UNITS/3 ML VIAL SQ SCH ×3 (08:14→16:17)
[2017-08-09] MEDS: 0.9 % Sodium Chloride 1,000 ML IVC SCH ×2 (08:16→20:32)
--- NOTE | 2017-08-09 10:10 | General Surgery Progress Note ---
Date of Encounter: 08/09/17 Time of Encounter: 09:15 - Assessment and Plan (1) Rectal cancer Current Visit: No Status: Acute POD #4 from a LAR with diverting ileostomy with Dr. Negrete Pathology pending Advance to full liquid diet with diabetic modifications Protein supplements TID with meals IV fluids- 60ml/hour Supportive care and pain control Increase activity as tolerated- ambulate hallways TID IS every 1 hour while awake Wound care consult for ileostomy teaching May shower today (2) Hyperglycemia Current Visit: Yes Status: Acute full liquids with diabetic modifications Continue SSI to ACHS and increase to high scale coverage Will contnue to monitor and adjust as necessary (3) Acute kidney injury Current Visit: Yes Status: Resolved Cr- 1.73>1.31>1.02>0.86 Continue IV fluids at 60ml/hour Avoid nephrotoxic medications (4) DVT prophylaxis Current Visit: Yes Status: Acute Heparin 5,000 units SQ twice daily for DVT prophylaxis Ambulate hallway TID with assistance Subjective Patient reports: no new complaints, feels better, still having pain, pain is less, tolerating liquids well, flatus, bowel movement (via ileostomy), afebrile Objective Vital Signs - Last 8 Hours Temp Pulse Resp BP Pulse Ox 08/09/17 07:14 97.6 F 68 18 117/62 92 Intake and Output 08/08/17 08/09/17 08/09/17 23:59 07:59 15:59 Intake Total 862 / 862 686 / 686 Output Total 700 / 700 150 / 150 Balance 162 / 162 536 / 536 Intake: IV Fluids 802 / 802 686 / 686 0.9 % Sodium Chloride 1,000 ML 802 / 802 686 / 686 @ 75 mls/hr IVC .[id number] DOM Rx #:[id number] Oral 60 / 60 0 / 0 Output: Urine 500 / 500 150 / 150 Stool 200 / 200 Other: Meal Dinner Stool Consistency liquid Stool Color Green Blood Glucose* 223 175 - General physical appearance well developed, well nourished, no distress - Eyes normal ocular movement - ENT dry mucosa, atraumatic, normocephalic - Neck Neck exam: trachea midline - Respiratory normal respiratory effort, clear to auscultation - Cardiovascular Cardiovascular exam: Present: RRR - Abdomen Abdomen: Present: bowel sounds present, soft, tender (expected post-operative tenderness), wound (Ileostomy is pink and moist with positive flatus and liquid green stool) - Incision Incision: Present: clean and dry, intact - Neurologic CN 2-12 grossly intact - Psychiatric oriented to time, oriented to person, oriented to place, speech is normal, memory intact - Labs 08/09/17 05:09 08/09/17 05:09 Diabetes panel 08/08/17 08/09/17 Range/Units 12:10 05:09 Sodium 140 140 (136-145) mEq/L Potassium 4.4 3.9 (3.5-4.5) mEq/L Chloride 110 H 110 H (98-109) mEq/L Carbon Dioxide 23 22 (19-29) mEq/L BUN 30 H 25 (8-26) mg/dL Creatinine 1.02 0.86 (0.72-1.25) mg/dL Glucose 226 H 164 H (70-99) mg/dL Calcium 8.1 L 8.1 L (8.6-10.8) mg/dL Calcium panel 08/08/17 08/09/17 Range/Units 12:10 05:09 Calcium 8.1 L 8.1 L (8.6-10.8) mg/dL Pituitary panel 08/08/17 08/09/17 Range/Units 12:10 05:09 Sodium 140 140 (136-145) mEq/L Potassium 4.4 3.9 (3.5-4.5) mEq/L Chloride 110 H 110 H (98-109) mEq/L Carbon Dioxide 23 22 (19-29) mEq/L BUN 30 H 25 (8-26) mg/dL Creatinine 1.02 0.86 (0.72-1.25) mg/dL Glucose 226 H 164 H (70-99) mg/dL Calcium 8.1 L 8.1 L (8.6-10.8) mg/dL Adrenal panel 08/08/17 08/09/17 Range/Units 12:10 05:09 Sodium 140 140 (136-145) mEq/L Potassium 4.4 3.9 (3.5-4.5) mEq/L Chloride 110 H 110 H (98-109) mEq/L Carbon Dioxide 23 22 (19-29) mEq/L BUN 30 H 25 (8-26) mg/dL Creatinine 1.02 0.86 (0.72-1.25) mg/dL Glucose 226 H 164 H (70-99) mg/dL Calcium 8.1 L 8.1 L (8.6-10.8) mg/dL - VTE Documentation of Mechanical Device: Intermittent pneumatic compression device Consult Discharge Plan - Plan Referrals: Lavonne Arellano MD [Partnered Physician] - 08/18/17 1:55 pm Jessica Wang CNP [Primary Care Provider] - - Attending Attestation For this encounter, I have reviewed the DIRECTOR TELECOMMUNICATIONS or PA documentation, treatment plan, and medical decision making; and I have had face to face time with this patient.
[2017-08-09] MEDS: Lisinopril-HCTZ 20-12.5mg TABLET PO SCH (11:54)
[2017-08-09] MEDS: *HR* OxyCODONE/APAP 5/325 TABLET PO PRN ×2 (14:09→20:28)
[2017-08-09] MEDS: Ondansetron 4 MG/2 ML VIAL IVP PRN (16:12)
[2017-08-10] MEDS: Insulin LISPRO 300 UNITS/3 ML VIAL SQ SCH ×3 (00:35→13:13)
[2017-08-10] MEDS: *HR* OxyCODONE/APAP 5/325 TABLET PO PRN ×2 (00:41→10:21)
[2017-08-10] MEDS: *HR* HYDROmorphone (PF) 1 MG/ML SYRINGE IVP PRN (04:02)
[2017-08-10] MEDS: *HR* Heparin 5,000 UNIT/ML VIAL SQ SCH (05:49)
[2017-08-10] MEDS: 0.9 % Sodium Chloride 1,000 ML IVC SCH (07:33)
[2017-08-10 08:47] VITALS: BP 125/66
[2017-08-10] MEDS: Lisinopril-HCTZ 20-12.5mg TABLET PO SCH (10:21)
[2017-08-10] MEDS ORDERED: *HR* OxyCODONE/APAP 7.5/325 TABLET PO PRN (10:33)
[2017-08-10] MEDS ORDERED: Acetaminophen 325 MG TABLET PO PRN (10:35)
--- NOTE | 2017-08-10 10:49 | Discharge Summary ---
Date of Encounter: 08/10/17 Time of Encounter: 10:30 - Discharge Diagnosis (1) Rectal cancer Priority: Primary Status: Acute (2) Hyperglycemia Priority: Secondary Status: Acute (3) Acute kidney injury Priority: Secondary Status: Resolved - Discharge Medications Prescriptions: OxyCODONE/APAP 7.5/325 [Percocet 7.5/325 MG] 1 each PO Q4HR PRN #30 tablet PRN Reason: Moderate Pain metFORMIN [Glucophage] 1,000 mg PO BIDWM #120 tablet Home Medications: Ascorbic Acid [Vitamin C] 500 mg PO DAILY #30 tablet 04/26/17 [Rx] Ferrous Sulfate [Iron] 325 mg PO DAILY #30 tablet 04/26/17 [Rx] Lisinopril-HCTZ 20-12.5 [Prinzide 20-12.5] 1 each PO DAILY 04/26/17 [History] Omeprazole [PriLOSEC] 20 mg PO BIDAC #30 cap 04/26/17 [Rx] Ondansetron HCl [Zofran] 4 mg PO Q4H PRN #30 tablet 04/26/17 [Rx] Prochlorperazine Maleate [Compazine] 10 mg PO Q6H PRN #30 tablet 04/26/17 [Rx] ALPRAZolam [Xanax 0.5 MG Tablet] 0.5 mg PO BID PRN #40 tablet 07/27/17 [Rx] OxyCODONE/APAP 7.5/325 [Percocet 7.5/325 MG] 1 each PO Q4HR PRN #30 tablet 08/10 [Rx] metFORMIN [Glucophage] 1,000 mg PO BIDWM #120 tablet 08/10/17 [Rx] Allergies/Adverse Reactions: 3 Allergy/AdvReac Type Severity Reaction Status Date / Time No Known Allergies Allergy Verified 07/14/17 16:04 General Surgery Exam Initial Vital Signs Temp Pulse Resp BP Pulse Ox 98.5 F 84 20 110/76 95 08/04/17 12:14 08/04/17 12:14 08/04/17 12:14 08/04/17 12:14 08/04/17 12:14 - General physical appearance well developed, well nourished, no distress - Eyes normal ocular movement - ENT normal mucosa, atraumatic, normocephalic - Neck trachea midline - Respiratory normal respiratory effort, clear to auscultation - Cardiovascular Cardiovascular exam: Present: RRR - Abdomen Abdomen general surgery: Present: bowel sounds present, soft, tender (expected post-operative tenderness), wound (ileostomy is pink and moist (positive flatus and liquid stool)) - Incision Incision: Present: clean and dry, intact - Neurologic Present: CN 2-12 grossly intact - Musculoskeletal Present: normal gait, normal posture - Psychiatric Psychiatric general surgery: Present: appropriate, oriented to person, oriented to place, oriented to time, speech is normal, memory intact Date of admission: 08/04/17 15:51 Primary care physician: Jessica Wang, Consults: 08/04/17 13:55 Consult to Nutrition [CONS] Routine Comment: Consulting Provider: NUTRITION Reason for Dietary Consult: MST Score 08/08/17 11:42 Consult to Wound Care [CONS] Routine Reason for Consult: new ileostomy; needs teaching and Rx for supplies Time Notified: 11:43 Call Completed: No 08/09/17 11:30 Consult to Waste Chopper [CONS] Routine Reason for SW Consult: Assess for home needs; new ileostomy Discharging clinician: Brian Olmedo [facility]) Anticipated date of discharge: 08/10/17 - Patient Status Disposition: Home, Self-Care Condition: Good Functional capacity at discharge: independent ambulation Overall status at discharge: patient is progressing back to baseline - Discharge Instructions Instructions: Meal Planning with Diabetes Exchanges (GEN) Follow Up With: Lavonne Arellano MD [Partnered Physician] - 08/18/17 1:55 pm Jessica Wang CNP [Primary Care Provider] - 08/10/17 (1 week- hospital follow-up; diabetes management) Heaven Montana MD [Partnered Physician] - (2 week hospital follow-up) Additional Instructions: #1 may shower, no tub bath for 2 weeks #2 wash incisions with soap and water and pat dry daily #3 no lifting, pushing, pulling more than 15 pounds for the next 6 weeks #4 no driving until off narcotics for 24 hours and able to safely react in the car #5 may climb stairs #6 ileostomy care daily- empty bag when 1/3 full and prn. Change appliance every 5-7 days and prn if leaking #7 check blood sugars every morning and log for PCP (bring to follow-up with Dr. Wang next week) #8 Call office or report to nearest ED with increasing abdominal pain, persistent nausea/vomiting, persistent fevers greater than 100.5 - Diet and Activity Activity: other (See additional instructions above) Diet: diabetic diet - Hospital Course Hospital course: Mr. Lyons is a 67 year old male with a history of rectal cancer. He is s/p neoadjuvant chemotherapy and radiation. He is s/p Robotic assisted low anterior resection with diverting ileostomy with Dr. Negrete. He remained on bowel rest while awaiting return of bowel function. With return of bowel function, he was started on a liquid diet and he has slowly been advanced to a diabetic diet. He is tolerating a diet without nausea/vomiting. He is having bowel function via his ileostomy. His pain is controlled with oral percocet. His vital signs are stable and he is afebrile. He is ambulating and voiding without difficulty. His blood sugars have been elevated during his hospitalization and we have controlled them with sliding scale insulin. His Hgb A1C was 8.8 during this admission. He will require medication for management of his blood sugars upon discharge. He did receive ileostomy teaching during his hospitalization. He states that he does not want home health at discharge. We will begin discharge planning and plan for outpatient follow-up in the next 10-14 days. - Time Spent with Patient Total time spent providing and/or coordinating discharge services: Greater than 30 minutes Labs on day of discharge: Labs from last 24 hours 08/10/17 08/09/17 08/09/17 07:29 20:53 15:58 POC Glucose 173 H 155 H 145 H 08/09/17 11:50 POC Glucose 186 H - Attending Attestation For this encounter, I have reviewed the DIRECTOR OF CASEWORK or PA documentation, treatment plan, and medical decision making; and I have had face to face time with this patient.
== END 2017-08-10 15:56 | disposition home or self-care (01) | DRG 330 ==
LOC: SAMDAY 12:20 → 3ANU 13:35 → SUATTDRO 15:51
PROVIDERS: ADMIT Surgery; ATTEND Surgery

== ENCOUNTER 2017-08-13 13:26 | Inpatient (IN) ==
[2017-08-13] MEDS ORDERED: *HR* HYDROmorphone (PF) 1 MG/ML SYRINGE IVP ONE (13:34)
[2017-08-13] MEDS ORDERED: Ondansetron 4 MG/2 ML VIAL IVP ONE (13:34)
--- NOTE | 2017-08-13 13:36 | Emergency Department Note ---
Disposition Clinical Impression: Ileus, Decubitus ulcer of sacral region, stage 1 Disposition: Admitted As Inpatient Condition: Fair General Adult HPI - General Stated complaint: possible bowel obstruction, surgery 08/05 Time Seen by Provider: 08/13/17 13:28 - Related Data Home Medications Medication Instructions Recorded Confirmed Lisinopril-HCTZ 20-12.5 [Prinzide 1 tab PO DAILY 04/26/17 08/13/17 20-12.5] OxyCODONE/APAP 7.5/325 [Percocet 1 tab PO Q4HR PRN 08/13/17 08/13/17 7.5/325 MG] Previous Rx's Medication Instructions Recorded Ascorbic Acid [Vitamin C] 500 mg PO DAILY #30 tablet 04/26/17 Ferrous Sulfate [Iron] 325 mg PO DAILY #30 tablet 04/26/17 Omeprazole [PriLOSEC] 20 mg PO BIDAC #30 cap 04/26/17 Ondansetron HCl [Zofran] 4 mg PO Q4H PRN #30 tablet 04/26/17 Prochlorperazine Maleate 10 mg PO Q6H PRN #30 tablet 04/26/17 [Compazine] ALPRAZolam [Xanax 0.5 MG Tablet] 0.5 mg PO BID PRN #40 tablet 07/27/17 metFORMIN [Glucophage] 1,000 mg PO BIDWM #120 tablet 08/10/17 Allergies Allergy/AdvReac Type Severity Reaction Status Date / Time No Known Allergies Allergy Verified 08/13/17 13:40 Past Medical History - Past Medical History Medical history: Reports: cancer, hypertension Surgical history: Reports: cataract Psychiatric history: Reports: anxiety, panic disorder - Social History Smoking Status: Never smoker Smokeless Tobacco Status: No Alcohol use: Reports: none Drug use: Reports: none Course Vital Signs O2 Sat by Pulse Oximetry 92 08/13/17 13:33 Temperature 98.2 F 08/14/17 07:13 Pulse Rate 85 08/14/17 07:13 Respiratory Rate 16 08/14/17 07:13 Blood Pressure 139/73 08/14/17 07:13 O2 Sat by Pulse Oximetry 95 08/14/17 07:13 Oxygen Delivery Oxygen Delivery Room Air Medical Decision Making - Lab Data Result diagrams: 08/14/17 06:39 08/14/17 06:39 Lab Results 08/13/17 08/13/17 08/13/17 Range/Units 13:50 13:50 13:50 WBC 9.1 (4.3-11.1) K/mcL RBC 3.79 L (4.19-5.50) M/mcL Hgb 10.6 L D (12.9-16.9) g/dL Hct 31.9 L (37.5-50.1) % MCV 84.2 (83.0-100.0) fL MCH 28.0 (28.0-33.3) pg MCHC 33.2 (31.6-35.5) g/dL RDW 15.7 H (11.5-14.5) % Plt Count 344 (140-400) K/mcL MPV 8.9 L (9.4-12.4) fL Seg Neutrophils % 55.0 % Band Neutrophils % 26.0 H (0-4) % Lymphocytes % 3.0 % Monocytes % 12.0 % Eosinophils % 1.0 % Metamyelocytes % 3.0 H (0) % Neutrophils # 7.4 (1.6-8.9) K/mcL Lymphocytes # 0.3 L (0.6-4.6) K/mcL Monocytes # 1.1 (0.0-1.3) K/mcL Eosinophils # 0.1 (0.0-0.6) K/mcL Nucleated RBCs/100 WBC 0.2 H (0) /100 WBC Platelet Estimate Normal (Normal) Polychromasia 1+ A (Not Present) PT 17.3 H (9.4-12.1) Seconds INR 1.6 Sodium 131 L (136-145) mEq/L Potassium 4.7 H (3.5-4.5) mEq/L Chloride 96 L (98-109) mEq/L Carbon Dioxide 20 (19-29) mEq/L BUN 39 H (8-26) mg/dL Creatinine 1.21 (0.72-1.25) mg/dL Est GFR ( Amer) > 60 (> 60) Est GFR (Non-Af Amer) 60 (> 60) BUN/Creatinine Ratio 32 H (6-26) Glucose 240 H (70-99) mg/dL Calculated Osmolality 289 (280-300) Lactic Acid (0.5-2.2) mmol/L Calcium 9.2 (8.6-10.8) mg/dL Magnesium (1.6-2.6) mg/dL Total Bilirubin 2.2 H (0.2-1.2) mg/dL AST 13 (5-34) Units/L ALT 21 (0-55) Units/L Alkaline Phosphatase 73 (38-126) Units/L Serum Total Protein 6.1 (6.0-8.3) g/dL Albumin 2.8 L (3.5-5.0) g/dL Globulin 3.3 (2.4-3.5) g/dL Albumin/Globulin Ratio 0.8 L (1.1-2.2) Lipase 13 (8-78) Units/L 08/13/17 08/13/17 Range/Units 13:50 14:38 WBC (4.3-11.1) K/mcL RBC (4.19-5.50) M/mcL Hgb (12.9-16.9) g/dL Hct (37.5-50.1) % MCV (83.0-100.0) fL MCH (28.0-33.3) pg MCHC (31.6-35.5) g/dL RDW (11.5-14.5) % Plt Count (140-400) K/mcL MPV (9.4-12.4) fL Seg Neutrophils % % Band Neutrophils % (0-4) % Lymphocytes % % Monocytes % % Eosinophils % % Metamyelocytes % (0) % Neutrophils # (1.6-8.9) K/mcL Lymphocytes # (0.6-4.6) K/mcL Monocytes # (0.0-1.3) K/mcL Eosinophils # (0.0-0.6) K/mcL Nucleated RBCs/100 WBC (0) /100 WBC Platelet Estimate (Normal) Polychromasia (Not Present) PT (9.4-12.1) Seconds INR Sodium (136-145) mEq/L Potassium (3.5-4.5) mEq/L Chloride (98-109) mEq/L Carbon Dioxide (19-29) mEq/L BUN (8-26) mg/dL Creatinine (0.72-1.25) mg/dL Est GFR ( Amer) (> 60) Est GFR (Non-Af Amer) (> 60) BUN/Creatinine Ratio (6-26) Glucose (70-99) mg/dL Calculated Osmolality (280-300) Lactic Acid 3.8 H (0.5-2.2) mmol/L Calcium (8.6-10.8) mg/dL Magnesium 2.0 (1.6-2.6) mg/dL Total Bilirubin (0.2-1.2) mg/dL AST (5-34) Units/L ALT (0-55) Units/L Alkaline Phosphatase (38-126) Units/L Serum Total Protein (6.0-8.3) g/dL Albumin (3.5-5.0) g/dL Globulin (2.4-3.5) g/dL Albumin/Globulin Ratio (1.1-2.2) Lipase (8-78) Units/L Attestation Statement - Attestation Attestation: I examined this patient and my medical decision-making was reviewed with the Resident Physician. I agree with the documented findings, disposition and treatment plan as described except to the extent set forth below. [id number] time provided Patient recently had a loop ileostomy placed due to rectal cancer. He now complains of decreased stooling into his ostomy collection appliance. He complains of nausea and vomiting as well as generalized abdominal pain. He appears mildly uncomfortable on exam. Mild abdominal distention. Concern for obstruction. Oral contrast enhanced CT abdomen and pelvis ordered 15:30: CT shows ileus versus SBO. We will discuss this case with general surgery on-call and admit
--- NOTE | 2017-08-13 13:45 | Emergency Department Note ---
Disposition Clinical Impression: Ileus, Decubitus ulcer of sacral region, stage 1 Disposition: Admitted As Inpatient Condition: Fair Referrals: Jessica Wang, SUPERVISOR TRAVEL TRAILER [Primary Care Provider] - Time of Disposition: 15:47 General Adult HPI - General Stated complaint: possible bowel obstruction, surgery 08/05 Time Seen by Provider: 08/13/17 13:28 Nursing Notes Reviewed: Yes Vital Signs Reviewed: Yes - History of Present Illness HPI Narrative: Mr. Lyons, a 67yo male 5d s/p colectomy w/colostomy, presents from home for evaluation of nausea, vomiting, low colostomy output. N/V persistent since discharge. Daughter changes ostomy bag yesterday and noted a small amount of brown fluid; no blood or blackness. His emesis is described as profuse, brown, foul smelling. His home dose antiemetic is not relieving his symptoms. He spoke with his general surgeon, Dr. Garcia, who advised him to present to the ER. Patient's daughter, bedside, also notes sacral ulcer and redness of his genitals. PSH: Partial colectomy w/colostomy s/p stage 3 rectal cancer (08/09/17, Dr. Negrete). PMH: DM II, HTN, anxiety ROS: Pos: N, V, abd pain Neg: Fever, chills, emesis, hematochezia, melena, dysuria, cough, shortness of breath, chest pains, palpitations - Related Data Home Medications Medication Instructions Recorded Confirmed Lisinopril-HCTZ 20-12.5 [Prinzide 1 tab PO DAILY 04/26/17 08/13/17 20-12.5] OxyCODONE/APAP 7.5/325 [Percocet 1 tab PO Q4HR PRN 08/13/17 08/13/17 7.5/325 MG] Previous Rx's Medication Instructions Recorded Ascorbic Acid [Vitamin C] 500 mg PO DAILY #30 tablet 04/26/17 Ferrous Sulfate [Iron] 325 mg PO DAILY #30 tablet 04/26/17 Omeprazole [PriLOSEC] 20 mg PO BIDAC #30 cap 04/26/17 Ondansetron HCl [Zofran] 4 mg PO Q4H PRN #30 tablet 04/26/17 Prochlorperazine Maleate 10 mg PO Q6H PRN #30 tablet 04/26/17 [Compazine] ALPRAZolam [Xanax 0.5 MG Tablet] 0.5 mg PO BID PRN #40 tablet 07/27/17 metFORMIN [Glucophage] 1,000 mg PO BIDWM #120 tablet 08/10/17 Allergies Allergy/AdvReac Type Severity Reaction Status Date / Time No Known Allergies Allergy Verified 08/13/17 13:40 All systems ED: reviewed and negative except as stated. Review of Systems: As Per HPI Past Medical History - Past Medical History Medical history: Reports: cancer, hypertension Surgical history: Reports: cataract Psychiatric history: Reports: anxiety, panic disorder - Social History Smoking Status: Never smoker Smokeless Tobacco Status: No Alcohol use: Reports: none Drug use: Reports: none Physical Exam Vital Signs Reviewed General: Patient is alert, oriented, tired, and in no acute distress. HEENT: No facial asymmetry. Head is normocephalic and atraumatic. Oral mucosa tacky. Trachea midline. Cardiovascular: Heart regular rate and rhythm without clicks, rubs, gallops, or murmurs. No JVD. PMI nondisplaced. No pedal edema. Bilateral posterior tibial pulses 2/44. Lower extremities equal in size. Respiratory: Symmetric chest rise with good respiratory effort. Bilateral breath sounds are clear without wheezing, crackles, or rhonchi. Abdomen: Bowel sounds present normoactive x-4 quadrants. Abdomen is soft, distended, diffusely tender; most tender in right lower quadrant around the ostomy. Ostomy site is clean with no estelle bleeding or purulence in or around the mucosal surface. Skin: Healing ecchymosis in the patient's flanks present since previous discharge. Stage I sacral decubitus ulcer. Testicles erythematous with skin intact and no visible lesions. Neuro: GCS 15 Psych: Patient's affect is appropriate for situation. Course Course Narrative: Patient presents 5 days s/p loop ileostomy for rectal cancer. He has been nauseaus with vomiting since. Concern for SBO; will CT abd/pelvis with IV and PO contrast. Lab work shows elevated lactate of 3.8. Normal renal function. Electrolyte abnormalities are expected given his protracted nausea and vomiting. CT concern for ileus versus SBO with ileus favored. Intraluminal air likely status postop. I spoke with on-call surgeon, Dr. Andrew, who agrees to accept the patient to her service as well as placement of an NG tube to help decompress the patient's stomach. Data the patient and his family with the plan thus far and they are in agreement. Abdomen/Pelvis CT 08/13/17 13:33 IMPRESSION: 1. Dilated stomach and small bowel to the level of the right lower quadrant loop ileostomy. Given the evidence of recent surgery, ileus is favored over mechanical small bowel obstruction. 2. Distal colonic anastomosis. 3. Small free intraperitoneal air is likely related to the recent surgery. Correlate for any peritoneal signs. 4. Small free fluid. 5. Nonobstructing left renal calculi. D/ / Howard Ramirez MD / Howard Ramirez MD Interpreting Provider: Howard Ramirez MD Vital Signs O2 Sat by Pulse Oximetry 92 08/13/17 13:33 Temperature 97.7 F 08/13/17 13:36 Pulse Rate 102 08/13/17 14:40 Respiratory Rate 20 08/13/17 14:40 Blood Pressure 125/73 08/13/17 14:40 O2 Sat by Pulse Oximetry 92 08/13/17 14:40 Oxygen Delivery Oxygen Delivery Room Air Medical Decision Making - Lab Data Result diagrams: 08/13/17 13:50 08/13/17 13:50 Lab Results 08/13/17 08/13/17 08/13/17 Range/Units 13:50 13:50 13:50 WBC 9.1 (4.3-11.1) K/mcL RBC 3.79 L (4.19-5.50) M/mcL Hgb 10.6 L D (12.9-16.9) g/dL Hct 31.9 L (37.5-50.1) % MCV 84.2 (83.0-100.0) fL MCH 28.0 (28.0-33.3) pg MCHC 33.2 (31.6-35.5) g/dL RDW 15.7 H (11.5-14.5) % Plt Count 344 (140-400) K/mcL MPV 8.9 L (9.4-12.4) fL Seg Neutrophils % 55.0 % Band Neutrophils % 26.0 H (0-4) % Lymphocytes % 3.0 % Monocytes % 12.0 % Eosinophils % 1.0 % Metamyelocytes % 3.0 H (0) % Neutrophils # 7.4 (1.6-8.9) K/mcL Lymphocytes # 0.3 L (0.6-4.6) K/mcL Monocytes # 1.1 (0.0-1.3) K/mcL Eosinophils # 0.1 (0.0-0.6) K/mcL Nucleated RBCs/100 WBC 0.2 H (0) /100 WBC Platelet Estimate Normal (Normal) Polychromasia 1+ A (Not Present) PT 17.3 H (9.4-12.1) Seconds INR 1.6 Sodium 131 L (136-145) mEq/L Potassium 4.7 H (3.5-4.5) mEq/L Chloride 96 L (98-109) mEq/L Carbon Dioxide 20 (19-29) mEq/L BUN 39 H (8-26) mg/dL Creatinine 1.21 (0.72-1.25) mg/dL Est GFR ( Amer) > 60 (> 60) Est GFR (Non-Af Amer) 60 (> 60) BUN/Creatinine Ratio 32 H (6-26) Glucose 240 H (70-99) mg/dL Calculated Osmolality 289 (280-300) Lactic Acid (0.5-2.2) mmol/L Calcium 9.2 (8.6-10.8) mg/dL Magnesium (1.6-2.6) mg/dL Total Bilirubin 2.2 H (0.2-1.2) mg/dL AST 13 (5-34) Units/L ALT 21 (0-55) Units/L Alkaline Phosphatase 73 (38-126) Units/L Serum Total Protein 6.1 (6.0-8.3) g/dL Albumin 2.8 L (3.5-5.0) g/dL Globulin 3.3 (2.4-3.5) g/dL Albumin/Globulin Ratio 0.8 L (1.1-2.2) Lipase 13 (8-78) Units/L 08/13/17 08/13/17 Range/Units 13:50 14:38 WBC (4.3-11.1) K/mcL RBC (4.19-5.50) M/mcL Hgb (12.9-16.9) g/dL Hct (37.5-50.1) % MCV (83.0-100.0) fL MCH (28.0-33.3) pg MCHC (31.6-35.5) g/dL RDW (11.5-14.5) % Plt Count (140-400) K/mcL MPV (9.4-12.4) fL Seg Neutrophils % % Band Neutrophils % (0-4) % Lymphocytes % % Monocytes % % Eosinophils % % Metamyelocytes % (0) % Neutrophils # (1.6-8.9) K/mcL Lymphocytes # (0.6-4.6) K/mcL Monocytes # (0.0-1.3) K/mcL Eosinophils # (0.0-0.6) K/mcL Nucleated RBCs/100 WBC (0) /100 WBC Platelet Estimate (Normal) Polychromasia (Not Present) PT (9.4-12.1) Seconds INR Sodium (136-145) mEq/L Potassium (3.5-4.5) mEq/L Chloride (98-109) mEq/L Carbon Dioxide (19-29) mEq/L BUN (8-26) mg/dL Creatinine (0.72-1.25) mg/dL Est GFR ( Amer) (> 60) Est GFR (Non-Af Amer) (> 60) BUN/Creatinine Ratio (6-26) Glucose (70-99) mg/dL Calculated Osmolality (280-300) Lactic Acid 3.8 H (0.5-2.2) mmol/L Calcium (8.6-10.8) mg/dL Magnesium 2.0 (1.6-2.6) mg/dL Total Bilirubin (0.2-1.2) mg/dL AST (5-34) Units/L ALT (0-55) Units/L Alkaline Phosphatase (38-126) Units/L Serum Total Protein (6.0-8.3) g/dL Albumin (3.5-5.0) g/dL Globulin (2.4-3.5) g/dL Albumin/Globulin Ratio (1.1-2.2) Lipase (8-78) Units/L
[2017-08-13 13:57] LABS: Hematocrit 31.9 % (37.5-50.1); Mean Corpuscular HGB Conc 33.2 g/dL (31.6-35.5); Mean Corpuscular Volume 84.2 fL (83.0-100.0); Mean Platelet Volume 8.9 fL (9.4-12.4); Nucleated Red Blood Cells 0.2 /100 WBC (0); Platelet Count 344 K/mcL (140-400); Red Blood Count 3.79 M/mcL (4.19-5.50); Red Cell Distribution Width 15.7 % (11.5-14.5)
[2017-08-13 13:58] LABS: Hemoglobin 10.6 g/dL (12.9-16.9)
[2017-08-13 14:01] LABS: INR 1.6; Prothrombin Time 17.3 Seconds (9.4-12.1)
[2017-08-13 14:17] LABS: Alanine Aminotransferase 21 Units/L (0-55); Albumin 2.8 g/dL (3.5-5.0); Albumin/Globulin Ratio 0.8 (1.1-2.2); Alkaline Phosphatase 73 Units/L (38-126); Aspartate Amino Transferase 13 Units/L (5-34); BUN/Creatinine Ratio 32 (6-26); Bilirubin,Total 2.2 mg/dL (0.2-1.2); Blood Urea Nitrogen 39 mg/dL (8-26); Calcium 9.2 mg/dL (8.6-10.8); Carbon Dioxide 20 mEq/L (19-29); Chloride 96 mEq/L (98-109); Globulin 3.3 g/dL (2.4-3.5); Glucose 240 mg/dL (70-99); Lipase 13 Units/L (8-78); Osmolality,Calculated 289 (280-300); Potassium 4.7 mEq/L (3.5-4.5); Sodium 131 mEq/L (136-145); Total Protein 6.1 g/dL (6.0-8.3); eGFR For African Americans > 60 (> 60); eGFR For Non-African Americans 60 (> 60)
[2017-08-13] MEDS ORDERED: 0.9 % Sodium Chloride 1,000 ML IVC ONE (14:18)
[2017-08-13] MEDS ORDERED: Vancomycin 1,250 MG in D5% in Water 250 ML IVPB ONE (14:21)
[2017-08-13] MEDS ORDERED: Piperacillin/Tazobactam 3.375 GM in D5% in Water (Mini-Bag+) 100 ML IVPB ONE (14:21)
[2017-08-13 14:27] LABS: Eosinophils # 0.1 K/mcL (0.0-0.6); Lymphocytes # 0.3 K/mcL (0.6-4.6); Monocytes # 1.1 K/mcL (0.0-1.3); Neutrophils # 7.4 K/mcL (1.6-8.9); Platelet Estimate Normal (Normal); Polychromasia 1+ (Not Present)
[2017-08-13] MEDS: 0.9 % Sodium Chloride 1,000 ML IVC SCH ×3 (14:57→18:10)
[2017-08-13] MEDS ORDERED: Ondansetron 4 MG/2 ML VIAL IVP PRN (17:34)
[2017-08-13] MEDS ORDERED: Naloxone 0.4 MG/ML INJ IVP PRN (17:34)
[2017-08-13] MEDS ORDERED: *HR* Promethazine 25 MG/ML VIAL IVP PRN (17:34)
[2017-08-13] MEDS ORDERED: *HR* Metoprolol 5 MG/5 ML VIAL IVP PRN (17:34)
--- NOTE | 2017-08-13 18:03 | General Surgery Progress Note ---
Date of Encounter: 08/13/17 Time of Encounter: 17:30 - Assessment and Plan (1) Status post ileostomy Current Visit: No Status: Acute Ileostomy stump is edematous. CT Scan performed on 08/13/17 revealed the following: Dilated stomach and small bowel to level of RLQ loop ileostomy. Ileus is favored over mechanical SBO. Small free fluid. Plan: -NPO. -Zofran 4mg IV q6hr. -Phenergan 12.5mg IV q6hr. -Heparin 5000 SQ q12. -Incentive spirometry. (2) Nausea Current Visit: No Status: Acute Patient reports feeling nauseous. -Had several episodes of vomiting prior to arrival. -NG tube inserted. -Zofran 4 mg IV q6hr. -Phenergan 12.5 mg IV q6hr. (3) Ileus Current Visit: Yes Status: Acute Subjective Patient reports: still having pain, no bowel movement, nausea Narrative: Patient was seen and examined at bedside this afternoon. Patient reports that he is not feeling well. He reports feeling abdominal pain and some nausea. He reports that before arrival to the hospital, he had been vomiting profusely. He has not had much in his ileostomy bag. Ileostomy stump is edematous. There is a small amount of blood present in the bag. Abdomen is distended. He denies fever, chills. Objective Vital Signs - Last 8 Hours Temp Pulse Resp BP Pulse Ox 08/13/17 16:50 97.8 F 92 20 134/73 95 08/13/17 16:10 20 157/80 Intake and Output 08/13/17 08/13/17 08/13/17 07:59 15:59 23:59 Intake Total 1000 / 1000 Output Total 300 / 300 Balance -300 / 1700 1000 / 1000 Intake: IV Fluids 1000 / 1000 0.9 % Sodium Chloride 1,000 ML 1000 / 1000 @ 3750 mls/hr IVC .Q16M [facility] Rx# :[id number] Output: Gastric Drainage 300 / 300 Left Nare 300 / 300 Other: Meal NPO Weight 89.925 kg Blood Glucose* 179 Patient Weight 08/13/17 23:59 Weight 89.925 kg - General physical appearance well developed, moderate distress - Neck Neck exam: no masses, trachea midline, no lymphadectomy - Respiratory normal expansion, normal respiratory effort, clear to auscultation - Cardiovascular Cardiovascular exam: Present: RRR, no murmurs/rubs/gallops - Abdomen Abdomen: Present: bowel sounds present, soft, tender Abdominal Tenderness: diffusely - Integumentary no rash, no abnormal pigmentation - Psychiatric oriented to time, oriented to person, oriented to place, speech is normal, memory intact - Labs 08/13/17 13:50 08/13/17 13:50 Consult Discharge Plan - Plan Referrals: Jessica Wang DRYWALL PROFESSIONAL [Primary Care Provider] -
--- NOTE | 2017-08-13 18:27 | General Surg History&Physical ---
Date of Encounter: 08/13/17 Time of Encounter: 18:24 Assessment and Plan (1) Hyperglycemia Current Visit: No Status: Acute The assessment and plan as outlined above was discussed with the patient and/or family members who expressed understanding and agreement. All questions were answered. SSI and MBS checks (2) Ileus Current Visit: Yes Status: Acute The assessment and plan as outlined above was discussed with the patient and/or family members who expressed understanding and agreement. All questions were answered. patient with ileus versus PSBO, some bowel sounds present, is distended with nausea, CT reviewed and dilated loops small bowel to loop ileostomy relief with ngt - LIWS continue IVF hydration prn pain control gi/dvt prophylaxis check urine Cx wbc within normal limits, pt with bandemia no obvious source am labs (3) Rectal cancer Current Visit: No Status: Acute The assessment and plan as outlined above was discussed with the patient and/or family members who expressed understanding and agreement. All questions were answered. patient s/p neoadjuvant therapy and LAR, loop ileostomy History of Present Illness Chief complaint: abdominal pain, N/V HPI: Mr. Lyons is a 67 year old male who underwent a robotic LAR with loop ileostomy on August 09. He was discharged home on Aug 10. He states that since he went home he has been having bilateral lower abdominal pain, nausea and emesis. He states he feels terrible and feels very distended. he has not been eating since d/c due to N/V. He has been puting liquid stool out his loop ileostomy. He presented to ED with and CT scan was done showing dilated loops of small bowel with fluid down to loop ileostomy and dilated fluid filled stomach. ED placed NGT and patient states he has received a lot of relief since that was placed. Past Med Surg Social Fam HX - Past Medical History Source: patient Medical history: cancer (rectal cancer), GERD, hypertension Psychiatric history: anxiety, panic disorder - Past Surgical History Surgical History: cataract, colectomy (robotic LAR with loop ileostomy) - Social History Smoking Status: Never smoker Smokeless Tobacco Status: No Alcohol use: none Drug use: none - Family History Mother Adopted: No Family Member Ethnicity: Non- Living Status: Age at : 81 Cause of : Heart complications Hx Family Cardiac Disorders: Yes Hx Family Respiratory Disorders: Yes Hx Family Cancer: No Hx Family GI Disorders: No Hx Family Genitourinary Disorders: No Hx Family Endocrine Disorder: Yes Hx Family Musculoskeletal Disorders: No Hx Family Neuromuscular Disorders: No Hx Family Neurologic Disorders: No Hx Family HEENT Disorders: No Hx Family Autoimmune Disorders: No Hx Family Reproductive Disorders: No Hx Family Psychosocial Disorders: No Hx Family Medical Disorders: No Medications and Allergies Ascorbic Acid [Vitamin C] 500 mg PO DAILY #30 tablet 04/26/17 [Rx] Ferrous Sulfate [Iron] 325 mg PO DAILY #30 tablet 04/26/17 [Rx] Lisinopril-HCTZ 20-12.5 [Prinzide 20-12.5] 1 tab PO DAILY 04/26/17 [History] Omeprazole [PriLOSEC] 20 mg PO BIDAC #30 cap 04/26/17 [Rx] Ondansetron HCl [Zofran] 4 mg PO Q4H PRN #30 tablet 04/26/17 [Rx] Prochlorperazine Maleate [Compazine] 10 mg PO Q6H PRN #30 tablet 04/26/17 [Rx] ALPRAZolam [Xanax 0.5 MG Tablet] 0.5 mg PO BID PRN #40 tablet 07/27/17 [Rx] metFORMIN [Glucophage] 1,000 mg PO BIDWM #120 tablet 08/10/17 [Rx] OxyCODONE/APAP 7.5/325 [Percocet 7.5/325 MG] 1 tab PO Q4HR PRN 08/13/17 [History ] 3 Allergy/AdvReac Type Severity Reaction Status Date / Time No Known Allergies Allergy Verified 08/13/17 13:40 Review of Systems All systems PM: reviewed and no additional remarkable complaints except as stated All systems PM: A 10-system review of systems was performed and is negative for pertinent findings except as documented above in the HPI. General Surgery Exam Initial Vital Signs Pulse Ox 92 08/13/17 13:33 - General physical appearance well developed, well nourished, moderate distress, other (ill appearing) - Eyes PERRL, normal ocular movement - ENT normal mucosa, normocephalic - Neck trachea midline - Respiratory normal expansion, clear to auscultation - Cardiovascular Cardiovascular exam: Present: RRR, no murmurs/rubs/gallops - Abdomen Abdomen general surgery: Present: bowel sounds present, soft, distended, tender (generalized and moderate). Absent: guarding, rebound - Incision Incision: Present: clean and dry, intact - Integumentary Integumentary general surgery: Present: warm and dry - Neurologic Present: CN 2-12 grossly intact - Musculoskeletal Present: normal posture - Psychiatric Psychiatric general surgery: Present: A&Ox3 - Additional Findings loop ileostomy maroon in color and edematous Results - Labs 08/13/17 13:50 08/13/17 13:50 Abnormal lab results RBC 3.79 M/mcL (4.19-5.50) L 08/13/17 13:50 Hgb 10.6 g/dL (12.9-16.9) L D 08/13/17 13:50 Hct 31.9 % (37.5-50.1) L 08/13/17 13:50 RDW 15.7 % (11.5-14.5) H 08/13/17 13:50 MPV 8.9 fL (9.4-12.4) L 08/13/17 13:50 Band Neutrophils % 26.0 % (0-4) H 08/13/17 13:50 Metamyelocytes % 3.0 % (0) H 08/13/17 13:50 Lymphocytes # 0.3 K/mcL (0.6-4.6) L 08/13/17 13:50 Nucleated RBCs/100 WBC 0.2 /100 WBC (0) H 08/13/17 13:50 Polychromasia 1+ (Not Present) A 08/13/17 13:50 PT 17.3 Seconds (9.4-12.1) H 08/13/17 13:50 Sodium 131 mEq/L (136-145) L 08/13/17 13:50 Potassium 4.7 mEq/L (3.5-4.5) H 08/13/17 13:50 Chloride 96 mEq/L (98-109) L 08/13/17 13:50 BUN 39 mg/dL (8-26) H 08/13/17 13:50 BUN/Creatinine Ratio 32 (6-26) H 08/13/17 13:50 Glucose 240 mg/dL (70-99) H 08/13/17 13:50 POC Glucose 179 (58-89) H 08/13/17 17:29 Lactic Acid 3.3 mmol/L (0.5-2.2) H 08/13/17 16:43 Total Bilirubin 2.2 mg/dL (0.2-1.2) H 08/13/17 13:50 Albumin 2.8 g/dL (3.5-5.0) L 08/13/17 13:50 Albumin/Globulin Ratio 0.8 (1.1-2.2) L 08/13/17 13:50 All other labs normal. - Imaging CT scan - abdomen: report reviewed, image reviewed CT scan - pelvis: report reviewed, image reviewed
[2017-08-13] MEDS ORDERED: D5% in Water 1,000 ML IVC PRN (18:32)
[2017-08-13] MEDS ORDERED: Dextrose Gel 15 GM PO PRN ×2 (18:32)
[2017-08-13] MEDS ORDERED: *HR* Dextrose 50 % in Water (Syg) 50 ML SYRINGE IVP PRN (18:32)
[2017-08-13 18:40] LABS: BUN/Creatinine Ratio 34 (6-26); Blood Urea Nitrogen 34 mg/dL (8-26); Calcium 8.2 mg/dL (8.6-10.8); Carbon Dioxide 20 mEq/L (19-29); Chloride 102 mEq/L (98-109); Glucose 184 mg/dL (70-99); Magnesium 1.6 mg/dL (1.6-2.6); Osmolality,Calculated 286 (280-300); Phosphorous 3.4 mg/dL (2.3-4.7); Potassium 4.9 mEq/L (3.5-4.5); Sodium 132 mEq/L (136-145); eGFR For African Americans > 60 (> 60); eGFR For Non-African Americans > 60 (> 60)
[2017-08-13] MEDS: Pantoprazole 40 MG VIAL IVP SCH (18:57)
[2017-08-13] MEDS: *HR* Heparin 5,000 UNIT/ML VIAL SQ SCH (18:58)
[2017-08-13] MEDS: *HR* Morphine 2 MG/ML SYRINGE IVP PRN (20:37)
[2017-08-13] MEDS ORDERED: Chloraseptic Spray 177 ML BOTTLE MM PRN (21:26)
[2017-08-13] MEDS: Insulin LISPRO 300 UNITS/3 ML VIAL SQ SCH (23:53)
[2017-08-14] MEDS: *HR* Morphine 2 MG/ML SYRINGE IVP PRN ×5 (00:05→19:50)
[2017-08-14] MEDS: *HR* Heparin 5,000 UNIT/ML VIAL SQ SCH ×2 (05:42→17:50)
[2017-08-14] MEDS: Insulin LISPRO 300 UNITS/3 ML VIAL SQ SCH ×3 (05:42→18:20)
[2017-08-14] MEDS: 0.9 % Sodium Chloride 1,000 ML IVC SCH ×3 (05:43→22:12)
[2017-08-14 07:31] LABS: Hematocrit 26.1 % (37.5-50.1); Mean Corpuscular Hemoglobin 28.3 pg (28.0-33.3); Mean Corpuscular Volume 85.9 fL (83.0-100.0); Mean Platelet Volume 9.4 fL (9.4-12.4); Nucleated Red Blood Cells 0.3 /100 WBC (0); Platelet Count 279 K/mcL (140-400); Red Blood Count 3.04 M/mcL (4.19-5.50)
[2017-08-14 07:33] LABS: Hemoglobin 8.6 g/dL (12.9-16.9)
[2017-08-14 07:45] LABS: Alanine Aminotransferase 15 Units/L (0-55); Albumin/Globulin Ratio 0.8 (1.1-2.2); Alkaline Phosphatase 60 Units/L (38-126); Aspartate Amino Transferase 13 Units/L (5-34); Bilirubin,Direct 0.7 mg/dL (0.0-0.5); Bilirubin,Indirect 1.3 mg/dL (0.0-1.2); Globulin 2.8 g/dL (2.4-3.5)
[2017-08-14 08:04] LABS: Albumin 2.2 g/dL (3.5-5.0)
[2017-08-14 08:14] LABS: Lymphocytes # 0.7 K/mcL (0.6-4.6); Monocytes # 0.6 K/mcL (0.0-1.3); Neutrophils # 5.3 K/mcL (1.6-8.9); Platelet Estimate Normal (Normal)
[2017-08-14] MEDS: Pantoprazole 40 MG VIAL IVP SCH (09:13)
[2017-08-14 10:01] LABS: BUN/Creatinine Ratio 30 (6-26); Blood Urea Nitrogen 27 mg/dL (8-26); Calcium 8.1 mg/dL (8.6-10.8); Carbon Dioxide 22 mEq/L (19-29); Chloride 101 mEq/L (98-109); Glucose 134 mg/dL (70-99); Osmolality,Calculated 283 (280-300); Potassium 4.4 mEq/L (3.5-4.5); eGFR For African Americans > 60 (> 60); eGFR For Non-African Americans > 60 (> 60)
[2017-08-14 10:04] LABS: Sodium 133 mEq/L (136-145)
--- NOTE | 2017-08-14 13:59 | General Surgery Progress Note ---
<Efraín Hendricks - Last Filed: 08/14/17 14:08> Date of Encounter: 08/14/17 Time of Encounter: 08:45 - Assessment and Plan (1) Status post ileostomy Current Visit: No Status: Acute Ileostomy stump is edematous. CT Scan performed on 08/13/17 revealed the following: Dilated stomach and small bowel to level of RLQ loop ileostomy. Ileus is favored over mechanical SBO. Small free fluid. Plan: -NPO. -Zofran 4mg IV q6hr. -Phenergan 12.5mg IV q6hr. -Heparin 5000 SQ q12. -Incentive spirometry. (2) Nausea Current Visit: No Status: Acute Patient reports feeling nauseous. -Had several episodes of vomiting prior to arrival. -NG tube inserted. -Zofran 4 mg IV q6hr. -Phenergan 12.5 mg IV q6hr. (3) Ileus Current Visit: Yes Status: Acute PRN pain medication. (4) Knee pain Current Visit: Yes Status: Acute Pain and swelling present in patient's right knee. 2V XR ordered for patient's right knee on 08/14/17, demonstrated the following: -Lateral soft tissue swelling. -Possible loose joint bodies. Qualifiers: Qualified Code(s): M25.561 - Pain in right knee Subjective Patient reports: still having pain Narrative: Patient was seen and examined at bedside this morning. Reports some relief in his abdominal pain since yesterday. Objective Vital Signs - Last 8 Hours Temp Pulse Resp BP Pulse Ox 08/14/17 11:26 97.7 F 82 17 117/68 93 08/14/17 07:13 98.2 F 85 16 139/73 95 Intake and Output 08/14/17 08/14/17 08/14/17 00:59 07:59 15:59 Intake Total 1000 / 1000 Output Total 800 / 800 Balance 200 / 200 Intake: IV Fluids 1000 / 1000 0.9 % Sodium Chloride 1,000 ML 1000 / 1000 @ 125 mls/hr IVC .Q8H [facility] Rx#: [id number] Oral Output: Urine Stool 200 / 200 Right Nephrostomy Gastric Drainage 600 / 600 Other: Meal NPO Weight Blood Glucose* 125 Patient Weight 08/14/17 22:59 Weight 89.2 kg - General physical appearance well developed - Respiratory normal expansion, normal respiratory effort, clear to auscultation - Cardiovascular Cardiovascular exam: Present: RRR, no murmurs/rubs/gallops - Abdomen Abdomen: Present: bowel sounds present, soft, distended, tender - Psychiatric oriented to time, oriented to person, oriented to place, speech is normal - Labs 08/14/17 06:39 08/14/17 06:39 Diabetes panel 08/13/17 08/14/17 Range/Units 18:21 06:39 Sodium 132 L 133 L (136-145) mEq/L Potassium 4.9 H 4.4 (3.5-4.5) mEq/L Chloride 102 101 (98-109) mEq/L Carbon Dioxide 20 22 (19-29) mEq/L BUN 34 H 27 H (8-26) mg/dL Creatinine 1.00 0.90 (0.72-1.25) mg/dL Glucose 184 H 134 H (70-99) mg/dL Calcium 8.2 L 8.1 L (8.6-10.8) mg/dL AST 13 (5-34) Units/L ALT 15 (0-55) Units/L Alkaline Phosphatase 60 (38-126) Units/L Albumin 2.2 L D (3.5-5.0) g/dL Calcium panel 08/13/17 08/14/17 Range/Units 18:21 06:39 Calcium 8.2 L 8.1 L (8.6-10.8) mg/dL Phosphorus 3.4 (2.3-4.7) mg/dL Albumin 2.2 L D (3.5-5.0) g/dL Pituitary panel 08/13/17 08/14/17 Range/Units 18:21 06:39 Sodium 132 L 133 L (136-145) mEq/L Potassium 4.9 H 4.4 (3.5-4.5) mEq/L Chloride 102 101 (98-109) mEq/L Carbon Dioxide 20 22 (19-29) mEq/L BUN 34 H 27 H (8-26) mg/dL Creatinine 1.00 0.90 (0.72-1.25) mg/dL Glucose 184 H 134 H (70-99) mg/dL Calcium 8.2 L 8.1 L (8.6-10.8) mg/dL Adrenal panel 08/13/17 08/14/17 Range/Units 18:21 06:39 Sodium 132 L 133 L (136-145) mEq/L Potassium 4.9 H 4.4 (3.5-4.5) mEq/L Chloride 102 101 (98-109) mEq/L Carbon Dioxide 20 22 (19-29) mEq/L BUN 34 H 27 H (8-26) mg/dL Creatinine 1.00 0.90 (0.72-1.25) mg/dL Glucose 184 H 134 H (70-99) mg/dL Calcium 8.2 L 8.1 L (8.6-10.8) mg/dL Total Bilirubin 2.0 H (0.2-1.2) mg/dL AST 13 (5-34) Units/L ALT 15 (0-55) Units/L Alkaline Phosphatase 60 (38-126) Units/L Albumin 2.2 L D (3.5-5.0) g/dL Consult Discharge Plan - Plan Referrals: Jessica Wang, W[employer] TREATMENT PLANT OPERATOR [Primary Care Provider] - <Lavonne Arellano - Last Filed: 08/14/17 14:42> Date of Encounter: 08/14/17 - Assessment and Plan (1) Hyperglycemia Current Visit: No Status: Acute resolved (2) Ileus Current Visit: Yes Status: Acute seems to be resolving less distended with minimal abdominal pain ileostomy functioning ok ice chips and popcicles (3) Rectal cancer Current Visit: No Status: Acute (4) Right knee pain Current Visit: Yes Status: Acute will check 3 view xray for right knee pain - shows soft tissue swelling laterally checking dvt US bilateral legs Qualifiers: Chronicity: acute Qualified Code(s): M25.561 - Pain in right knee (5) DVT prophylaxis Current Visit: No Status: Acute continue heparin sq (6) Anemia Current Visit: Yes Status: Acute likely dilutional and due to chronic disease, will monitor patient asymptomatic Qualifiers: Anemia type: other cause Subjective Narrative: feels much better today, still having ngt output, liquid stool output from ileostomy complains of pain in right knee and swelling - states it hurts wiht movement, denies leg swelling no pain behing calf Objective Vital Signs - Last 8 Hours Temp Pulse Resp BP Pulse Ox 08/14/17 11:26 97.7 F 82 17 117/68 93 08/14/17 07:13 98.2 F 85 16 139/73 95 Intake and Output 08/14/17 08/14/17 08/14/17 00:59 07:59 15:59 Intake Total 1000 / 1000 Output Total 800 / 800 Balance 200 / 200 Intake: IV Fluids 1000 / 1000 0.9 % Sodium Chloride 1,000 ML 1000 / 1000 @ 125 mls/hr IVC .Q8H [facility] Rx#: [id number] Oral Output: Urine Stool 200 / 200 Right Nephrostomy Gastric Drainage 600 / 600 Other: Meal NPO Weight Blood Glucose* 125 Patient Weight 08/14/17 22:59 Weight 89.2 kg - General physical appearance well developed, well nourished, no distress - Eyes PERRL, normal ocular movement - ENT normal mucosa, normocephalic - Neck Neck exam: trachea midline - Respiratory normal expansion, clear to auscultation - Cardiovascular Cardiovascular exam: Present: RRR, no murmurs/rubs/gallops - Abdomen Abdomen: Present: bowel sounds present, soft, tender (minimal). Absent: distended, guarding, rebound - Incision Incision: Present: clean and dry, intact - Integumentary no rash, no growths - Neurologic CN 2-12 grossly intact - Musculoskeletal normal posture - Psychiatric oriented to time, oriented to person, oriented to place, speech is normal, memory intact - Labs 08/14/17 06:39 08/14/17 06:39 Diabetes panel 08/13/17 08/14/17 Range/Units 18:21 06:39 Sodium 132 L 133 L (136-145) mEq/L Potassium 4.9 H 4.4 (3.5-4.5) mEq/L Chloride 102 101 (98-109) mEq/L Carbon Dioxide 20 22 (19-29) mEq/L BUN 34 H 27 H (8-26) mg/dL Creatinine 1.00 0.90 (0.72-1.25) mg/dL Glucose 184 H 134 H (70-99) mg/dL Calcium 8.2 L 8.1 L (8.6-10.8) mg/dL AST 13 (5-34) Units/L ALT 15 (0-55) Units/L Alkaline Phosphatase 60 (38-126) Units/L Albumin 2.2 L D (3.5-5.0) g/dL Calcium panel 08/13/17 08/14/17 Range/Units 18:21 06:39 Calcium 8.2 L 8.1 L (8.6-10.8) mg/dL Phosphorus 3.4 (2.3-4.7) mg/dL Albumin 2.2 L D (3.5-5.0) g/dL Pituitary panel 08/13/17 08/14/17 Range/Units 18:21 06:39 Sodium 132 L 133 L (136-145) mEq/L Potassium 4.9 H 4.4 (3.5-4.5) mEq/L Chloride 102 101 (98-109) mEq/L Carbon Dioxide 20 22 (19-29) mEq/L BUN 34 H 27 H (8-26) mg/dL Creatinine 1.00 0.90 (0.72-1.25) mg/dL Glucose 184 H 134 H (70-99) mg/dL Calcium 8.2 L 8.1 L (8.6-10.8) mg/dL Adrenal panel 08/13/17 08/14/17 Range/Units 18:21 06:39 Sodium 132 L 133 L (136-145) mEq/L Potassium 4.9 H 4.4 (3.5-4.5) mEq/L Chloride 102 101 (98-109) mEq/L Carbon Dioxide 20 22 (19-29) mEq/L BUN 34 H 27 H (8-26) mg/dL Creatinine 1.00 0.90 (0.72-1.25) mg/dL Glucose 184 H 134 H (70-99) mg/dL Calcium 8.2 L 8.1 L (8.6-10.8) mg/dL Total Bilirubin 2.0 H (0.2-1.2) mg/dL AST 13 (5-34) Units/L ALT 15 (0-55) Units/L Alkaline Phosphatase 60 (38-126) Units/L Albumin 2.2 L D (3.5-5.0) g/dL
[2017-08-15] MEDS: Insulin LISPRO 300 UNITS/3 ML VIAL SQ SCH ×4 (00:31→17:34)
[2017-08-15] MEDS: *HR* Morphine 2 MG/ML SYRINGE IVP PRN ×4 (00:38→09:38)
[2017-08-15 04:56] LABS: Basophils % 0.3 %; Eosinophils # 0.1 K/mcL (0.0-0.6); Eosinophils % 0.9 %; Hematocrit 25.9 % (37.5-50.1); Hemoglobin 8.4 g/dL (12.9-16.9); Immature Granulocytes % 3.5 % (0-4); Lymphocytes # 0.5 K/mcL (0.6-4.6); Lymphocytes % 6.3 %; Mean Corpuscular HGB Conc 32.4 g/dL (31.6-35.5); Mean Corpuscular Hemoglobin 27.9 pg (28.0-33.3); Mean Platelet Volume 8.9 fL (9.4-12.4); Monocytes # 0.7 K/mcL (0.0-1.3); Monocytes % 8.7 %; Platelet Count 253 K/mcL (140-400); Red Blood Count 3.01 M/mcL (4.19-5.50); Red Cell Distribution Width 15.8 % (11.5-14.5); Segmented Neutrophils % 80.3 %
[2017-08-15 05:10] LABS: BUN/Creatinine Ratio 24 (6-26); Blood Urea Nitrogen 18 mg/dL (8-26); Calcium 7.9 mg/dL (8.6-10.8); Carbon Dioxide 21 mEq/L (19-29); Chloride 104 mEq/L (98-109); Glucose 119 mg/dL (70-99); Magnesium 1.6 mg/dL (1.6-2.6); Osmolality,Calculated 285 (280-300); Phosphorous 2.6 mg/dL (2.3-4.7); Sodium 136 mEq/L (136-145); eGFR For African Americans > 60 (> 60); eGFR For Non-African Americans > 60 (> 60)
[2017-08-15] MEDS: 0.9 % Sodium Chloride 1,000 ML IVC SCH ×2 (06:01→14:35)
[2017-08-15] MEDS: *HR* Heparin 5,000 UNIT/ML VIAL SQ SCH ×2 (06:01→17:48)
[2017-08-15] MEDS: Pantoprazole 40 MG VIAL IVP SCH (09:38)
--- NOTE | 2017-08-15 13:54 | General Surgery Progress Note ---
Date of Encounter: 08/15/17 Time of Encounter: 13:30 - Assessment and Plan (1) Ileus Current Visit: Yes Status: Acute Resolving D/C NG tube NPO except ice chips Ambulate hallways TID with assistance- saline lock while walking IV fluids- decreased to 100ml/hour Supportive care and pain control IS every 1 hour while awake AAS in the am to evaluate bowel gas pattern (2) Rectal cancer Current Visit: No Status: Acute POD #10 LAR and ileostomy Pathology reviewed prior to discharge previous admission Plan for outpatient follow-up with oncology (3) Hyperglycemia Current Visit: No Status: Acute Stable Continue sliding scale insulin Will continue to monitor and adjust as necessary (4) Hypertension Current Visit: Yes Status: Acute Scheduled metoprolol IV every 6 hours Will continue to monitor and adjust as necessary Qualifiers: Hypertension type: unspecified Qualified Code(s): I10 - Essential (primary ) hypertension (5) DVT prophylaxis Current Visit: No Status: Acute Heparin 5,000 units SQ twice daily for DVT prophylaxis Ambulate hallways TID with assistance Subjective Patient reports: no new complaints, feels better, still having pain, pain is less, voiding w/o difficulty, flatus, bowel movement (via ileostomy), afebrile Objective Vital Signs - Last 8 Hours Temp Pulse Resp BP Pulse Ox 08/15/17 11:06 98.1 F 85 18 162/75 96 08/15/17 08:29 97.4 F L 79 18 148/74 96 Intake and Output 08/14/17 08/15/17 08/15/17 23:59 07:59 15:59 Intake Total 1000 / 1000 1000 / 1000 0 / 0 Output Total 950 / 950 325 / 325 825 / 825 Balance 50 / 50 675 / 675 -825 / -825 Intake: IV Fluids 1000 / 1000 1000 / 1000 0.9 % Sodium Chloride 1,000 ML 1000 / 1000 1000 / 1000 @ 125 mls/hr IVC .Q8H [facility] Rx#: [id number] Oral 0 / 0 0 / 0 Output: Urine 200 / 200 325 / 325 275 / 275 Stool 350 / 350 25 / 25 Gastric Drainage 400 / 400 525 / 525 Other: Meal NPO Dinner Stool Color Brown Weight 94.347 kg Blood Glucose* 123 131 129 Patient Weight 08/15/17 23:59 Weight 94.347 kg - General physical appearance well developed, well nourished, no distress - Eyes normal ocular movement - ENT normal mucosa, atraumatic, normocephalic - Neck Neck exam: trachea midline - Respiratory normal respiratory effort, clear to auscultation - Cardiovascular Cardiovascular exam: Present: RRR - Abdomen Abdomen: Present: bowel sounds present, soft, tender (expected post-operative tenderness), wound (ileostomy is pink and moist with flatus and liquid stool noted) - Incision Incision: Present: clean and dry, intact - Integumentary no rash, no growths - Neurologic CN 2-12 grossly intact - Psychiatric oriented to time, oriented to person, oriented to place, speech is normal, memory intact - Labs 08/15/17 04:32 08/15/17 04:32 Diabetes panel 08/15/17 Range/Units 04:32 Sodium 136 (136-145) mEq/L Potassium 4.0 (3.5-4.5) mEq/L Chloride 104 (98-109) mEq/L Carbon Dioxide 21 (19-29) mEq/L BUN 18 (8-26) mg/dL Creatinine 0.76 (0.72-1.25) mg/dL Glucose 119 H (70-99) mg/dL Calcium 7.9 L (8.6-10.8) mg/dL Calcium panel 08/15/17 Range/Units 04:32 Calcium 7.9 L (8.6-10.8) mg/dL Phosphorus 2.6 (2.3-4.7) mg/dL Pituitary panel 08/15/17 Range/Units 04:32 Sodium 136 (136-145) mEq/L Potassium 4.0 (3.5-4.5) mEq/L Chloride 104 (98-109) mEq/L Carbon Dioxide 21 (19-29) mEq/L BUN 18 (8-26) mg/dL Creatinine 0.76 (0.72-1.25) mg/dL Glucose 119 H (70-99) mg/dL Calcium 7.9 L (8.6-10.8) mg/dL Adrenal panel 08/15/17 Range/Units 04:32 Sodium 136 (136-145) mEq/L Potassium 4.0 (3.5-4.5) mEq/L Chloride 104 (98-109) mEq/L Carbon Dioxide 21 (19-29) mEq/L BUN 18 (8-26) mg/dL Creatinine 0.76 (0.72-1.25) mg/dL Glucose 119 H (70-99) mg/dL Calcium 7.9 L (8.6-10.8) mg/dL - Imaging Additional Studies: Abdomen/Pelvis CT 08/13/17 13:33 IMPRESSION: 1. Dilated stomach and small bowel to the level of the right lower quadrant loop ileostomy. Given the evidence of recent surgery, ileus is favored over mechanical small bowel obstruction. 2. Distal colonic anastomosis. 3. Small free intraperitoneal air is likely related to the recent surgery. Correlate for any peritoneal signs. 4. Small free fluid. 5. Nonobstructing left renal calculi. D/ / Howard Ramirez MD / Howard Ramirez MD Interpreting Provider: Howard Ramirez MD Knee X-Ray 08/14/17 12:27 IMPRESSION: Lateral soft tissue swelling. Possible joint loose bodies. D/ / Agnes Francois Cha, MD / Agnes Francois Cha, MD Interpreting Provider: Agnes Francois Cha, MD - VTE Documentation of Mechanical Device: Intermittent pneumatic compression device Consult Discharge Plan - Plan Referrals: Jessica Wang, ADVANCED PRACTICE RN [Primary Care Provider] - - Attending Attestation For this encounter, I have reviewed the SERVICE CASHIER or PA documentation, treatment plan, and medical decision making; and I have had face to face time with this patient.
[2017-08-15] MEDS ORDERED: *HR* HYDROmorphone (PF) 1 MG/ML SYRINGE IVP PRN (13:58)
[2017-08-15] MEDS: *HR* Metoprolol 5 MG/5 ML VIAL IVP SCH (17:49)
[2017-08-16] MEDS: Insulin LISPRO 300 UNITS/3 ML VIAL SQ SCH ×4 (00:55→17:56)
[2017-08-16] MEDS: 0.9 % Sodium Chloride 1,000 ML IVC SCH ×2 (01:05→12:02)
[2017-08-16] MEDS: *HR* Metoprolol 5 MG/5 ML VIAL IVP SCH ×2 (01:05→05:09)
[2017-08-16] MEDS: *HR* Heparin 5,000 UNIT/ML VIAL SQ SCH ×2 (05:09→17:01)
[2017-08-16] MEDS: Pantoprazole 40 MG VIAL IVP SCH (08:44)
[2017-08-16] MEDS ORDERED: Acetaminophen 325 MG TABLET PO PRN (11:38)
[2017-08-16] MEDS ORDERED: *HR* OxyCODONE/APAP 5/325 TABLET PO PRN (11:38)
[2017-08-16] MEDS ORDERED: *HR* HYDROmorphone (PF) 1 MG/ML SYRINGE IVP PRN (11:39)
--- NOTE | 2017-08-16 11:42 | General Surgery Progress Note ---
Date of Encounter: 08/16/17 Time of Encounter: 11:30 - Assessment and Plan (1) Ileus Current Visit: Yes Status: Acute Resolving Full liquids and protein supplements TID with meals Ambulate hallways TID with assistance- saline lock while walking IV fluids- decreased to 75ml/hour Supportive care and pain control IS every 1 hour while awake AAS- dilated loops of small bowel but improved since admission Denies any further nausea/vomiting (2) Rectal cancer Current Visit: No Status: Acute POD #11 LAR and ileostomy Pathology reviewed prior to discharge previous admission Plan for outpatient follow-up with oncology (3) Hyperglycemia Current Visit: No Status: Acute Stable Continue sliding scale insulin Will continue to monitor and adjust as necessary (4) Hypertension Current Visit: Yes Status: Acute Home dose of Lisinopril-HCTZ ordered Metoprolol prn for continued HTN Will continue to monitor and adjust as necessary Qualifiers: Hypertension type: unspecified Qualified Code(s): I10 - Essential (primary ) hypertension (5) DVT prophylaxis Current Visit: No Status: Acute Heparin 5,000 units SQ twice daily for DVT prophylaxis Ambulate hallways TID with assistance Subjective Patient reports: no new complaints, feels better, still having pain, pain is less, voiding w/o difficulty, flatus, bowel movement (via ileostomy), afebrile Objective Vital Signs - Last 8 Hours Temp Pulse Resp BP Pulse Ox 08/16/17 10:41 97.9 F 78 14 149/67 98 08/16/17 06:40 97.9 F 71 14 135/69 98 08/16/17 04:38 98.3 F 75 16 142/73 95 Intake and Output 08/15/17 08/16/17 08/16/17 23:59 07:59 15:59 Intake Total 0 / 0 1000 / 1000 Output Total 400 / 400 400 / 400 100 / 100 Balance -400 / -400 600 / 600 -100 / -100 Intake: IV Fluids 1000 / 1000 0.9 % Sodium Chloride 1,000 ML 1000 / 1000 @ 100 mls/hr IVC .Q10H [facility] Rx#: [id number] Oral 0 / 0 0 / 0 Output: Urine 250 / 250 400 / 400 100 / 100 Stool 150 / 150 Other: Meal NPO Stool Consistency loose Stool Color Brown Green Blood Glucose* 134 125 134 - General physical appearance well developed, well nourished, no distress - Eyes normal ocular movement - ENT normal mucosa, atraumatic, normocephalic - Neck Neck exam: trachea midline - Respiratory normal respiratory effort, clear to auscultation - Cardiovascular Cardiovascular exam: Present: RRR - Abdomen Abdomen: Present: bowel sounds present, soft, tender (Expected postoperative tenderness), wound (Ileostomy is pink and moist with a large amount of liquid, green stool and flatus) - Incision Incision: Present: clean and dry, intact - Neurologic CN 2-12 grossly intact - Psychiatric oriented to time, oriented to person, oriented to place, speech is normal, memory intact - Labs 08/15/17 04:32 08/15/17 04:32 - VTE Documentation of Mechanical Device: Intermittent pneumatic compression device Consult Discharge Plan - Plan Referrals: Jessica Wang ENVIRONMENTAL DESIGNER [Primary Care Provider] - - Attending Attestation For this encounter, I have reviewed the GUITAR INSTRUCTOR or PA documentation, treatment plan, and medical decision making; and I have had face to face time with this patient.
[2017-08-16] MEDS ORDERED: *HR* Metoprolol 5 MG/5 ML VIAL IVP PRN (11:46)
[2017-08-16] MEDS: Lisinopril-HCTZ 20-12.5mg TABLET PO SCH (12:02)
[2017-08-16 22:26] LABS: Hematocrit 24.6 % (37.5-50.1); Hemoglobin 8.1 g/dL (12.9-16.9); Mean Corpuscular HGB Conc 32.9 g/dL (31.6-35.5); Mean Corpuscular Hemoglobin 27.8 pg (28.0-33.3); Mean Corpuscular Volume 84.5 fL (83.0-100.0); Mean Platelet Volume 8.6 fL (9.4-12.4); Nucleated Red Blood Cells 0.5 /100 WBC (0); Platelet Count 266 K/mcL (140-400); Red Blood Count 2.91 M/mcL (4.19-5.50); Red Cell Distribution Width 15.3 % (11.5-14.5)
[2017-08-16 22:52] LABS: Eosinophils # 0.2 K/mcL (0.0-0.6); Lymphocytes # 1.3 K/mcL (0.6-4.6); Monocytes # 0.5 K/mcL (0.0-1.3)
[2017-08-16 22:53] LABS: Platelet Estimate Normal (Normal); Reactive Lymphocytes Present (Not Present); Toxic Granulation Present (Not Present)
[2017-08-17] MEDS: Insulin LISPRO 300 UNITS/3 ML VIAL SQ SCH ×2 (00:22→05:54)
[2017-08-17] MEDS: 0.9 % Sodium Chloride 1,000 ML IVC SCH (01:02)
[2017-08-17] MEDS: *HR* Heparin 5,000 UNIT/ML VIAL SQ SCH (05:43)
[2017-08-17 06:00] LABS: Hematocrit 24.7 % (37.5-50.1); Hemoglobin 8.1 g/dL (12.9-16.9)
[2017-08-17] MEDS: Lisinopril-HCTZ 20-12.5mg TABLET PO SCH (09:00)
[2017-08-17 10:57] VITALS: BP 148/72
[2017-08-17 11:53] LABS: Hematocrit 26.2 % (37.5-50.1); Hemoglobin 8.4 g/dL (12.9-16.9)
--- NOTE | 2017-08-17 12:11 | Discharge Summary ---
Date of Encounter: 08/17/17 Time of Encounter: 12:00 - Discharge Diagnosis (1) Ileus Priority: Primary Status: Resolved (2) Rectal cancer Priority: Secondary Status: Acute (3) Hyperglycemia Priority: Secondary Status: Acute (4) Hypertension Priority: Secondary Status: Acute Qualifiers: Hypertension type: unspecified Qualified Code(s): I10 - Essential (primary ) hypertension - Discharge Medications Prescriptions: OxyCODONE/APAP 7.5/325 [Percocet 7.5/325 MG] 1 tab PO Q4HR PRN #30 tablet PRN Reason: Moderate Pain Docusate [Colace] 100 mg PO BID #60 capsule Home Medications: Ascorbic Acid [Vitamin C] 500 mg PO DAILY #30 tablet 04/26/17 [Rx] Ferrous Sulfate [Iron] 325 mg PO DAILY #30 tablet 04/26/17 [Rx] Lisinopril-HCTZ 20-12.5 [Prinzide 20-12.5] 1 tab PO DAILY 04/26/17 [History] Omeprazole [PriLOSEC] 20 mg PO BIDAC #30 cap 04/26/17 [Rx] Ondansetron HCl [Zofran] 4 mg PO Q4H PRN #30 tablet 04/26/17 [Rx] Prochlorperazine Maleate [Compazine] 10 mg PO Q6H PRN #30 tablet 04/26/17 [Rx] ALPRAZolam [Xanax 0.5 MG Tablet] 0.5 mg PO BID PRN #40 tablet 07/27/17 [Rx] metFORMIN [Glucophage] 1,000 mg PO BIDWM #120 tablet 08/10/17 [Rx] Docusate [Colace] 100 mg PO BID #60 capsule 08/17/17 [Rx] OxyCODONE/APAP 7.5/325 [Percocet 7.5/325 MG] 1 tab PO Q4HR PRN #30 tablet [Rx] Allergies/Adverse Reactions: 3 Allergy/AdvReac Type Severity Reaction Status Date / Time No Known Allergies Allergy Verified 08/13/17 13:40 General Surgery Exam Initial Vital Signs Pulse Ox 92 08/13/17 13:33 - General physical appearance well developed, well nourished, no distress - Eyes normal ocular movement - ENT normal mucosa, atraumatic, normocephalic - Neck trachea midline - Respiratory normal respiratory effort, clear to auscultation - Cardiovascular Cardiovascular exam: Present: RRR - Abdomen Abdomen general surgery: Present: bowel sounds present, soft, tender (Minimal, expected postoperative tenderness), wound (Ileostomy is pink and moist with positive flatus and liquid stool) - Incision Incision: Present: clean and dry ([place] removed without difficulty), intact - Integumentary Integumentary general surgery: Present: warm and dry - Neurologic Present: CN 2-12 grossly intact - Musculoskeletal Present: normal gait, normal posture - Psychiatric Psychiatric general surgery: Present: appropriate, oriented to person, oriented to place, oriented to time, speech is normal, memory intact Date of admission: 08/13/17 15:48 Primary care physician: Jessica Wang, Discharging clinician: Brian Negrete (Mae Whalen) Anticipated date of discharge: 08/17/17 - Patient Status Disposition: Home, Self-Care Condition: Good Functional capacity at discharge: independent ambulation Overall status at discharge: patient is progressing back to baseline - Discharge Instructions Follow Up With: Jessica Wang CNP [Primary Care Provider] - Gabi Whalen CNP [Advanced Practice Nurse] - 08/25/17 9:15 am (surgery follow-up) Forms: ED Satisfaction Letter, Work/School Release Additional Instructions: #1 may shower, no tub bath for 2 weeks #2 wash incisions with soap and water and pat dry daily #3 no lifting, pushing, pulling more than 15 pounds for the next 4 weeks #4 no driving until off narcotics for 24 hours and able to safely react in the car #5 may climb stairs Ileostomy care- empty ileostomy bag 3 times per day and as needed if one third full. Change appliance every 5-7 days and as needed if leaking. - Diet and Activity Activity: other (See additional instructions above) Diet: other (Full liquid diet with protein supplements (ensure of equivalent- 3 cans per day)) - Hospital Course Hospital course: Mr. Lyons is a 67 year old male with a history of rectal cancer who is recently status post a low anterior resection with diverting ileostomy with Dr. Negrete. He was discharged from the hospital after his surgery and then returned with abdominal distention with associated nausea and vomiting. He was treated for a postoperative ileus with conservative measures. His symptoms did resolve with supportive treatment. He is currently tolerating a full liquid diet and protein supplements without nausea or vomiting. He is having bowel function through his ileostomy including stool and flatus. His vital signs are stable he is afebrile. His laboratory values are stable. His pain is well controlled. He is voiding and ambulating without difficulty. We will begin discharge planning to home and plan for outpatient follow-up in the next 7-10 days. - Time Spent with Patient Total time spent providing and/or coordinating discharge services: Less than 30 minutes Labs on day of discharge: Labs from last 24 hours 08/17/17 08/17/17 08/17/17 11:28 05:50 05:36 WBC RBC Hgb 8.4 L 8.1 L Hct 26.2 L 24.7 L MCV MCH MCHC RDW Plt Count MPV Seg Neutrophils % Lymphocytes % Monocytes % Eosinophils % Myelocytes % Neutrophils # Lymphocytes # Monocytes # Eosinophils # Nucleated RBCs/100 WBC Reactive Lymphocytes Toxic Granulation Platelet Estimate POC Glucose 126 H 08/16/17 08/16/17 08/16/17 23:57 22:12 17:13 WBC 8.3 RBC 2.91 L Hgb 8.1 L Hct 24.6 L MCV 84.5 MCH 27.8 L MCHC 32.9 RDW 15.3 H Plt Count 266 MPV 8.6 L Seg Neutrophils % 72.0 Lymphocytes % 16.0 Monocytes % 6.0 Eosinophils % 2.0 Myelocytes % 4.0 H Neutrophils # 6.0 Lymphocytes # 1.3 Monocytes # 0.5 Eosinophils # 0.2 Nucleated RBCs/100 WBC 0.5 H Reactive Lymphocytes Present A Toxic Granulation Present A Platelet Estimate Normal POC Glucose 127 H 149 H - Impressions ITS Impressions Knee X-Ray 08/14/17 12:27 IMPRESSION: Lateral soft tissue swelling. Possible joint loose bodies. D/ / Agnes Francois Cha, MD / Agnes Francois Cha, MD Interpreting Provider: Agnes Francois Cha, MD Chest/Abdomen X-ray 08/16/17 06:00 IMPRESSION: No evidence for acute cardiopulmonary process. Multiple prominent air-filled loops of small bowel with multiple air-fluid levels concerning for ileus or small bowel obstruction, improved from prior CT exam 08/13/2017. D/ / 08/16/2017 09:13:29 Pierre Leyva MD / brittany Interpreting Provider: Pierre Leyva MD - Attending Attestation For this encounter, I have reviewed the CYTOGENETIC TECHNICIAN or PA documentation, treatment plan, and medical decision making; and I have had face to face time with this patient.
== END 2017-08-17 13:52 | disposition home or self-care (01) | DRG 394 ==
LOC: EMEROO 13:26 → SUATTDRO 15:48 → 3ANU 15:48
PROVIDERS: ADMIT Surgery; ATTEND Surgery